=== PATIENT | female | born 1975 | race Caucasian/White ===

== ENCOUNTER 2017-01-22 22:26 | Outpatient (CLI) | payer MEDICAID | END 2017-01-22 22:27 | disposition critical access hospital (66) | LOC: EMS 22:26 | PROVIDERS: ATTEND Surgery | DX: M79.652 Pain in left thigh (principal) | CPT/HCPCS: A0425; A0429 ==

== ENCOUNTER 2017-01-22 22:40 | Emergency (ER) | payer MEDICAID ==
--- NOTE | 2017-01-22 23:41 | ED Physician Documentation ---
History of Present Illness - Stated complaint Stated Complaint: L THIGH CRAMPS - Chief complaint Chief Complaint: Ext Problem - History obtained from History obtained from: Patient - History of Present Illness Timing: How many days ago (3) Pain level now: 5 Improved by: no ameliorating factors Worsened by: weight-bearing - Additonal information Additional information: three days ago, patient stood up from bed and experienced "popping" sensation left thigh associated with sudden onset left lateral thigh pain which has progressed in intensity. It waxes and wanes/episodic, feels like cramping pain. also intermittent numbness distal to left knee. denies back pain, denies h/o similar symptoms Review of Systems Constitutional: denies: Fever GI: denies: Abdominal Pain, Nausea, Vomiting Skin: denies: Rash Musculoskeletal: reports: Extremity pain, Pain with weight bearing. denies: Neck pain, Back pain, Joint pain, Extremity swelling, Joint swelling Neurologic: reports: Numbness. 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 : None HEENT: None Psych: None Musculoskeletal: None Derm: None - Past Surgical History Past Surgical History: No - Present Medications Home Medications: Ambulatory Orders Medication Instructions Recorded Confirmed diazePAM [Valium] 5 mg PO TID PRN #15 tablet 01/23/17 oxyCODONE/ACET 5/325 [Percocet 5 1 - 2 each PO Q6H PRN #14 tablet 01/23/17 mg/325 mg] - Allergies Allergies/Adverse Reactions: Allergies Allergy/AdvReac Type Severity Reaction Status Date / Time aspirin Allergy Anaphylaxis Verified 01/22/17 22:49 - Social History Does the pt smoke?: No Smoking Status: Never smoker Does the pt drink ETOH?: No Does the pt have substance abuse?: No - Immunizations Immunizations are current?: Yes PD ED PE NORMAL - Vitals Vital signs reviewed: Yes - General General: Alert and oriented X 3, Well developed/nourished, Other (NAD initially , then had episode of left anterolateral thigh pain x several minutes but subsequently gradually improved ) - Abdomen Abdomen: Soft, Non tender - Back Back: No spinal TTP - Derm Derm: Normal color, Warm and dry, No rash - Extremities Extremities: No deformity, No tenderness to palpate, Normal ROM s pain, No edema , No calf tenderness / cord, Other (left foot is warm, normal color, with brisk capillary refill and 2+ DP pulse) - Neuro Neuro: No motor deficit, No sensory deficit Results - Vitals Vitals: Vital Signs - 24 hr 01/22/17 01/22/17 01/23/17 22:43 23:27 00:51 Temperature 36.6 C 37.1 C Heart Rate 89 85 86 Respiratory 20 16 18 Rate Blood Pressure 150/104 H 182/64 H 161/65 H O2 Saturation 100 99 99 01/23/17 01/23/17 01/23/17 01:17 02:05 03:16 Temperature 36.9 C 36.7 C Heart Rate 87 74 77 Respiratory 18 16 16 Rate Blood Pressure 186/76 H 154/44 H 160/48 H O2 Saturation 99 98 96 Oxygen O2 Source Room air PD MEDICAL DECISION MAKING - ED course Complexity details: considered differential, d/w patient ED course: adequate relief with flexeril and vicodin, but she had recurrence of severe pain when she tried to walk (with assistance), and thus given PO valium and IM dilaudid. On reevaluation, she reported significant relief and was comfortable with d/c home. Departure - Departure Disposition: Home, Self Care Clinical Impression: Muscle strain Condition: Good Instructions: ED Strain Muscle Ext Follow-Up: [facility] [Provider Group] [facility] [Provider Group] Prescriptions: oxyCODONE/ACET 5/325 [Percocet 5 mg/325 mg] 1 - 2 each PO Q6H PRN #14 tablet PRN Reason: Pain diazePAM [Valium] 5 mg PO TID PRN #15 tablet PRN Reason: Spasms Discharge Date/Time: 01/23/17 03:15
[2017-01-22] MEDS ORDERED: HYDROcod/ACETAM 5/325 MG TABLET PO STA (23:57)
[2017-01-22] MEDS ORDERED: CYCLOBENZAPRINE 10 MG TABLET PO STA (23:57)
[2017-01-23] MEDS ORDERED: HYDROcod/ACETAM 5/325 MG TABLET ONE (00:08)
[2017-01-23] MEDS ORDERED: CYCLOBENZAPRINE 10 MG TABLET PO ONE (00:08)
[2017-01-23] MEDS ORDERED: HYDROmorphone 1 MG/ML SYRINGE IM STA (01:25)
[2017-01-23] MEDS ORDERED: diazePAM 5 MG TABLET PO STA (01:25)
[2017-01-23] MEDS ORDERED: ONDANSETRON ODT 4 MG TABLET TL STA (01:26)
[2017-01-23] MEDS ORDERED: ONDANSETRON ODT 4 MG TABLET ONE (01:28)
[2017-01-23] MEDS ORDERED: diazePAM 5 MG TABLET PO ONE (01:28)
[2017-01-23] MEDS ORDERED: HYDROmorphone 1 MG/ML SYRINGE ONE (01:28)
[2017-01-23 03:21] VITALS: BP 160/48
== END 2017-01-23 03:15 | disposition home or self-care (01) ==
LOC: EDBD → ED 22:40
DX: S76.912A Strain of unspecified muscles, fascia and tendons at thigh level, left thigh, initial encounter (principal); X50.9XXA Other and unspecified overexertion or strenuous movements or postures, initial encounter
CPT/HCPCS: 96372; 99283; 99284; A9270; J1170; Q0162

== ENCOUNTER 2017-10-16 21:52 | Inpatient (IN) | payer MEDICAID ==
--- NOTE | 2017-10-16 22:25 | ED Physician Documentation ---
PD HPI SKIN - Stated complaint Stated Complaint: R LEG BOIL,FEVER - Chief complaint Chief Complaint: Wound - History obtained from History obtained from: Patient - History of Present Illness Timing - onset: How many days ago (5) Timing - duration: Days (5) Timing - details: Gradual onset Pain level max: 8 Pain level now: 8 Location: RLE Quality / character: Painful, Discolored, Raised, Swelling, Draining Improved by: Other (no ameliorating factors) Worsened by (comment): COMMENT (palpation, position) Associated symptoms: Fever (Tmax 102 (2 days ago)) Recently seen: Not recently seen - Additional information Additional information: patient states she has a "boil" right thigh that started 5 days ago; she says she occasionally has similar lesions since she was 15 years old, but they typically drain and then resolve without requiring medical attention. 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 : None HEENT: None Psych: None Musculoskeletal: None Derm: None - Past Surgical History Past Surgical History: No - Present Medications Home Medications: Ambulatory Orders Medication Instructions Recorded Confirmed Lisinopril 20 mg PO DAILY 10/16/17 10/16/17 - Allergies Allergies/Adverse Reactions: Allergies Allergy/AdvReac Type Severity Reaction Status Date / Time aspirin Allergy Anaphylaxis Verified 10/16/17 22:00 Latex, Natural Rubber Allergy Rash Verified 10/16/17 22:02 shellfish derived Allergy Anaphylaxis Verified 10/16/17 22:02 - Social History Does the pt smoke?: No Smoking Status: Never smoker Does the pt drink ETOH?: No Does the pt have substance abuse?: No - Immunizations Immunizations are current?: Yes - POLST Patient has POLST: No PD ED PE NORMAL - Vitals Vital signs reviewed: Yes - General General: Alert and oriented X 3, No acute distress (NAD at rest but obvious painful distress with movement involving RLE), Other (obese) - Cardiac Cardiac: RRR, No murmur - Respiratory Respiratory: No respiratory distress, Clear bilaterally PD ED PE EXPANDED - Extremities LORI LE visual: 1 - abscess (large, palpable abscess (fluctuance, hot to touch, exquisitely tender, erythematous, with scant drainage with pressure)), swelling, tenderness Results - Vitals Vitals: Vital Signs - 24 hr 10/16/17 10/17/17 21:56 01:11 Temperature 36.8 C 37.3 C Heart Rate 111 H 110 H Respiratory 18 24 Rate Blood Pressure 169/93 H 146/69 H O2 Saturation 98 96 Oxygen O2 Source Room air - Labs Labs: Microbiology 10/17/17 00:40 Wound Culture - Preliminary Abscess Laboratory Tests 10/16/17 10/16/17 10/16/17 22:50 22:50 22:50 WBC 13.7 H RBC 4.03 L Hgb 11.6 L Hct 34.8 L MCV 86.4 MCH 28.8 MCHC 33.3 RDW 14.0 Plt Count 262 MPV 8.6 Neut # 11.4 H Lymph # 0.9 L [place] # 1.1 H Eos # 0.2 Baso # 0.1 Absolute Nucleated RBC 0.01 Nucleated RBC % 0.1 Sodium 133 L Potassium 3.6 Chloride 95 L Carbon Dioxide 22 Anion Gap 16.0 H BUN 14 Creatinine 0.8 Estimated GFR (MDRD) 78 L Glucose 428 H Lactic Acid Calcium 8.8 Serum HCG, Qual NEGATIVE 10/16/17 23:05 WBC RBC Hgb Hct MCV MCH MCHC RDW Plt Count MPV Neut # Lymph # [place] # Eos # Baso # Absolute Nucleated RBC Nucleated RBC % Sodium Potassium Chloride Carbon Dioxide Anion Gap BUN Creatinine Estimated GFR (MDRD) Glucose Lactic Acid 1.4 Calcium Serum HCG, Qual PD MEDICAL DECISION MAKING - ED course Complexity details: reviewed results, re-evaluated patient, considered differential, d/w patient ED course: Exam is s/o extensive abscess not amenable to ED I+D. D/W Dr. Henriquez, recommends admission to hospitalist, NPO after midnight, and she will evaluate patient in AM for probably OR I+D. Pain was well controlled in ED with toradol and 2mg morphine (patient says she reacts strongly to all pain medications and thus wanted low doses if possible) Departure - Departure Disposition: [facility] DC/Xfer Clinical Impression: Abscess Condition: Good Discharge Date/Time: 10/17/17 02:16
[2017-10-16] MEDS ORDERED: MORPHINE 2 MG/ML CARPUJECT IVP STA (22:52)
[2017-10-16] MEDS ORDERED: KETOROLAC 60 MG/2 ML VIAL IVP STA (22:52)
[2017-10-16 23:07] LABS: BASOPHILS # (AUTO) 0.1 10^3/uL (0.0-0.1); BASOPHILS % (AUTO) 0.8 %; EOSINOPHILS # (AUTO) 0.2 10^3/uL (0.0-0.7); EOSINOPHILS % (AUTO) 1.7 %; HGB - HEMOGLOBIN 11.6 g/dL (12.0-16.0); LYMPHOCYTES # (AUTO) 0.9 10^3/uL (1.5-3.5); LYMPHOCYTES % (AUTO) 6.3 %; MEAN CORPUSCULAR HEMOGLOBIN 28.8 pg (27.0-31.0); MEAN CORPUSCULAR HGB CONC 33.3 g/dL (32.0-36.0); MEAN CORPUSCULAR VOLUME 86.4 fL (81.0-99.0); MEAN PLATELET VOLUME 8.6 fL (7.9-10.8); MONOCYTES # (AUTO) 1.1 10^3/uL (0.0-1.0); MONOCYTES % (AUTO) 7.8 %; NEUTROPHILS # (AUTO) 11.4 10^3/uL (1.5-6.6); NEUTROPHILS % (AUTO) 83.4 %; PLT - PLATELET COUNT 262 10^3/uL (130-450); RED BLOOD COUNT 4.03 10^6/uL (4.20-5.40); WHITE BLOOD COUNT 13.7 x10^3/uL (4.8-10.8)
[2017-10-16 23:20] LABS: CALCIUM 8.8 mg/dL (8.5-10.3); CREATININE 0.8 mg/dL (0.4-1.0)
[2017-10-16] MEDS ORDERED: VANCOMYCIN INJ 1 GM in SODIUM CHLORIDE 0.9% 250 ML IV STA (23:45)
[2017-10-16] MEDS ORDERED: SODIUM CHLORIDE 0.9% 1,000 ML IV STA (23:47)
[2017-10-16] MEDS ORDERED: PIPERACILLIN/TAZOBACTAM 3.375 GM in SODIUM CHLORIDE 0.9% MINIBAG 100 ML IV STA (23:47)
[2017-10-17] MEDS ORDERED: TEMAZEPAM 15 MG CAPSULE PO PRN (01:51)
[2017-10-17] MEDS ORDERED: HYDROmorphone 1 MG/ML SYRINGE IVP PRN (01:51)
[2017-10-17] MEDS ORDERED: ACETAMINOPHEN 325 MG TABLET PO PRN (01:51)
[2017-10-17] MEDS: SODIUM CHLORIDE 0.9% 1,000 ML IV SCH ×2 (02:51→13:51)
--- NOTE | 2017-10-17 04:19 | HISTORY & PHYSICAL EXAMINATION ---
DATE OF SERVICE: 10/17/2017 Physician: Candice Francis MD HISTORY OF PRESENT ILLNESS: This is a 42-year-old, white female with a history of morbid obesity with a BMI of 52, history of hypertension on lisinopril, and a history of prior lower extremity abscess or cysts that drain and resolve on their own according to the patient and . The patient presents with a 4-day history of a new cyst that opened and started to drain purulent drainage in the right medial thigh, very close to her groin. The drainage was somewhat purulent. The leg area involved then started to extend upward to involve a major portion of her proximal medial thigh with redness and pain. She also developed chills, nausea and vomiting, and spiking fevers. With these symptoms worsening today, she presented to the emergency room. She has been found to have a large abscess of the right thigh and is being admitted for management. PAST MEDICAL HISTORY: Hypertension, morbid obesity, prior leg "cysts". ALLERGIES 1. ASPIRIN. 2. LATEX. 3. RUBBER. 4. SHELLFISH. MEDICATIONS AT HOME: Lisinopril 20 mg daily. REVIEW OF SYSTEMS: A comprehensive review of systems was performed and the positives are above. FAMILY HISTORY: No inherited diseases. PHYSICAL EXAMINATION GENERAL: White female who is in no distress, supine in bed. There is a foul odor around her. VITAL SIGNS: Blood pressure 155/60, heart rate of 108 in sinus tachycardia. No fever here. Temperature is 37, room air saturation 96%. HEENT: Unremarkable. Oral mucosa is moist. NECK: Shows no JVD. No thyromegaly or carotid bruits. No lymphadenopathy. CHEST: Clear at the anterior bases. HEART: Heart sounds are normal. No audible murmurs. ABDOMEN: Obese. Normal bowel sounds. Nontender to light touch. No organomegaly. EXTREMITIES: Show no edema. The right medial and anterior thigh is covered in a bandage which was not reopened. NEUROLOGIC: Intact. LABORATORY DATA: Sodium 133, potassium 3.6, BUN 14, creatinine 0.8, glucose level 428. White blood count 13.7 with a left shift, hemoglobin 11.6 with a normal MCV and RDW. Platelet count normal at 262. No INR was done. No imaging was done. No EKG was done. IMPRESSION/DIAGNOSES 1. Recurrent leg abscess of the right, with extensive spread, pain and fever. 2. Hypertension. 3. Morbid obesity. 4. Hyperglycemia, suspicious of new diagnosis of diabetes mellitus. PLAN: Place the patient in a med/surgical inpatient bed. Begin IV fluids and begin IV antibiotics. The patient already had cultures performed in the emergency room; therefore, will continue with vancomycin and Zosyn IV. She also received Toradol and morphine for pain, and these will be continued. The general surgeon has been contacted by the emergency room doctor and the plan is to take her for debridement tomorrow. She will be placed n.p.o. after midnight. Obtain an A1c level to determine if there has been recent or longstanding diabetes. I suspect that this infection has tipped her over into being a full diabetic now , and she will need training and management regarding this new diagnosis. Her morbid obesity gives her some increased risk with anesthesia. Recommend obtaining a resting chest x-ray and resting EKG for risk factor evaluation. CODE STATUS: FULL CODE. DEEP VENOUS THROMBOSIS PROPHYLAXIS: Foot pumps. ATTESTATION: The patient is expected to be discharged or transferred to another facility within 96 hours: Yes. TD: 10/17/2017 04:17 MTDD
[2017-10-17 04:49] LABS: HCG,QUALITATIVE BLOOD NEGATIVE
[2017-10-17 06:39] LABS: BASOPHILS % (AUTO) 0.4 %; EOSINOPHILS # (AUTO) 0.2 10^3/uL (0.0-0.7); EOSINOPHILS % (AUTO) 1.9 %; HGB - HEMOGLOBIN 10.5 g/dL (12.0-16.0); LYMPHOCYTES # (AUTO) 0.9 10^3/uL (1.5-3.5); LYMPHOCYTES % (AUTO) 7.9 %; MEAN CORPUSCULAR HGB CONC 32.3 g/dL (32.0-36.0); MEAN CORPUSCULAR VOLUME 86.7 fL (81.0-99.0); MEAN PLATELET VOLUME 8.2 fL (7.9-10.8); MONOCYTES % (AUTO) 8.3 %; NEUTROPHILS # (AUTO) 9.7 10^3/uL (1.5-6.6); NEUTROPHILS % (AUTO) 81.5 %; PLT - PLATELET COUNT 273 10^3/uL (130-450); RED BLOOD COUNT 3.76 10^6/uL (4.20-5.40); RED CELL DISTRIBUTION WIDTH 14.1 % (12.0-15.0); WHITE BLOOD COUNT 11.9 x10^3/uL (4.8-10.8)
[2017-10-17 06:46] LABS: CALCIUM 8.2 mg/dL (8.5-10.3); CREATININE 0.8 mg/dL (0.4-1.0)
[2017-10-17 07:42] LABS: HB2 TOTAL 11.4 g/dL; HEMOGLOBIN A1C 1.29 g/dL; HEMOGLOBIN A1C % 12.5 % (4.6-6.2)
[2017-10-17] MEDS: CEFEPIME 2 GM in SODIUM CHLORIDE 0.9% MINIBAG 100 ML IV SCH ×2 (07:57→20:27)
[2017-10-17] MEDS ORDERED: VANCOMYCIN WEIGHT BASED (PHA COMPOUNDING) IV SCH (08:00)
[2017-10-17] MEDS: SODIUM CHLORIDE FLUSH 0.9% 10 ML SYRINGE IVP SCH ×3 (08:01→20:29)
[2017-10-17] MEDS: LISINOPRIL 20 MG TABLET PO SCH ×2 (09:03→09:05)
[2017-10-17] MEDS: FAMOTIDINE 20 MG TABLET PO SCH (09:03)
[2017-10-17] MEDS: POLYETHYLENE GLYCOL 3350 17 GM PACKET PO SCH (09:04)
[2017-10-17] MEDS: INSULIN REGULAR HUMAN 100 UNIT/1 ML 10 ML MDV SUBQ SCH ×2 (09:31→12:12)
--- NOTE | 2017-10-17 09:33 | CONSULTATION NOTE ---
Referring Provider Name of Referring Provider:: Dr. Zaldivar Consult Date: 10/17/17 Chief Complaint - Chief Complaint Chief Complaint: right thigh abscess History of Present Illness - History of Present Illness HPI Comment/Other: This is a 42 year old morbidly obese female with a history of groin abscesses who presented to the ER for a two week history of pain and swelling in the right groin which originated posteriorly toward her buttock. The pain became worse and was associated with fever and chills. On evaluation in the ER she was noted to be febrile with an elevated WBC. Upon my evaluation of the patient she is currently afebrile after receiving antibiotics with a slightly improved WBC. Her blood glucose is over 300. She is slightly tachycardic but otherwise resting in bed comfortably. She states that she has never been diagnosed with diabetes. 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 : reports: None HEENT: reports: None Psych: reports: None Musculoskeletal: reports: Osteoarthritis Derm: reports: None MRSA Hx?: No Other Past Medical History: whooping cough 2001 - POLST Patient has POLST: No Meds/Allgy - Home Medications Home Medications: Ambulatory Orders Medication Instructions Recorded Confirmed Lisinopril 20 mg PO DAILY 10/16/17 10/16/17 - Allergies Allergies/Adverse Reactions: Allergies Allergy/AdvReac Type Severity Reaction Status Date / Time aspirin Allergy Anaphylaxis Verified 10/16/17 22:00 Latex, Natural Rubber Allergy Rash Verified 10/16/17 22:02 shellfish derived Allergy Anaphylaxis Verified 10/16/17 22:02 Review of Systems - Constitutional Constitutional: reports: Fever, Chills Exam - Vital Signs Reviewed Vital Signs: Yes Vital Signs: Vital Signs x48h Temp Pulse Resp BP BP Pulse Ox 10/17/17 07:34 37.4 C 95 18 160/70 H 98 10/17/17 02:30 37.1 C 108 H 18 155/60 H 96 - Physical Exam General Appearance: positive: No acute distress Respiratory: positive: No respiratory distress, Breath sounds nml Cardiovascular: positive: Tachycardia Extremities: positive: Other (6 cm x 6 cm area of induration and swelling in upper right thigh with surrounding erythema. Area is slightly tender to palpation. No crepitence.) Neurologic/Psychiatric: positive: Oriented x3 Conclusion/Plan - Diagnosis Diagnosis: right thich cellulitis with probable abscess - Plan Plan: 1. Thigh cellulitis/abscess: Continue broad spectrum antibiotics. Cultures will be obtained in OR. Will proceed with incision and drainage of indurated area. 2. Uncontrolled diabetes: Patient will require Q2 monitoring of blood glucose until she is within the normal range. Consider insulin drip if sub q insulin is ineffective. In the setting of active infection poorly controlled glucose will contribute to prolongation of wound infection and poor wound healing. 3. Morbid obesity: Patient should be referred to a retail service representative for discussion of lifestyle modification given her morbid obesity associated with HTN, diabetes and recurring soft tissue infections. 4. HTN: continue home dosage of lisinopril. - Lab Results Fish Bones: 10/17/17 06:21 10/17/17 06:21
[2017-10-17] MEDS ORDERED: SODIUM CHLORIDE 0.9% 0 ML IV ONE (09:49)
[2017-10-17] MEDS ORDERED: LACTATED RINGERS 500 ML IV ONE (10:03)
[2017-10-17] MEDS: VANCOMYCIN INJ 2 GM in SODIUM CHLORIDE 0.9% 500 ML IV SCH ×2 (10:04→22:02)
[2017-10-17] MEDS ORDERED: KETAMINE 500 MG/10 ML VIAL IVP ONE (10:40)
[2017-10-17] MEDS ORDERED: MIDAZOLAM 2 MG/2 ML VIAL IVP ONE (10:40)
[2017-10-17] MEDS ORDERED: LIDOCAINE-MPF 2% 5 ML VIAL IM ONE (10:40)
[2017-10-17] MEDS ORDERED: fentaNYL 100 MCG/2 ML VIAL IVP ONE (10:40)
[2017-10-17] MEDS ORDERED: PROPOFOL 200 MG/20 ML VIAL IVP ONE (10:40)
[2017-10-17] MEDS ORDERED: ONDANSETRON 4 MG/2 ML VIAL IVP ONE (10:40)
[2017-10-17] MEDS ORDERED: BUPIVACAINE 0.25% PF 30 ML VIAL SUBQ ONE (10:44)
--- NOTE | 2017-10-17 10:44 | XRAY Report ---
EXAM: CHEST RADIOGRAPHY EXAM DATE: 10/17/2017 06:50 AM. CLINICAL HISTORY: Pre-op clearance. COMPARISON: None. TECHNIQUE: 1 view. FINDINGS: Lungs/Pleura: No focal opacities evident. No pleural effusion. No pneumothorax. Mediastinum: Within exam limitations, the cardiomediastinal contour is normal. Other: Mild degenerative process in the bilateral AC joint visualized. IMPRESSION: Negative single view chest. [facility] Referring Provider Line: [phone] SITE ID: [id number]
[2017-10-17] MEDS ORDERED: SODIUM CHLORIDE 0.9% 1,000 ML IV ONE (11:08)
[2017-10-17] MEDS ORDERED: LACTATED RINGERS 1,000 ML IV ONE ×2 (11:08)
[2017-10-17] MEDS: INSULIN REGULAR HUMAN 100 UNIT/1 ML 10 ML MDV ONE ×2 (11:20→11:42)
--- NOTE | 2017-10-17 11:20 | OPERATIVE REPORT ---
Operative Report - General Admit Date: 10/17/17 Procedure Date: 10/17/17 Planned Procedure: incision and drainage right groin abscess Pre-Op Diagnosis: abscess right groin Procedure Performed: incision and drainage right groin abscess Post Op Diagnosis: same - Procedure Note Primary Surgeon: Florence Anesthesia Provider: Nelson Kothari Anesthesia Technique: MAC IV Fluids (mL): 300 - Other Other Information/Narrative: After obtaining informed consent from the patient she was brought into the operating room and positioned on the operating table in the modified lithotomy position. She was administered sedation and prepped and draped in the usual sterile fashion and a timeout was taken according to protocol.A pinpoint opening in the right genital region adjacent to the right labia was noted and draining foul-smelling pus. This opening was extended cephalad approximately 4 cm and the abscess cavity encountered. Cultures were obtained. The surgeon's finger was inserted and the abscess cavity was noted to be quite extensive. The incision was extended an additional 3 cm cephalad. The abscess cavity was inspected and necrotic tissue was noted. This was removed using sharp dissection. The necrotic tissue extended beyond the length of the incision incision had to be extended even more cephalad to approximately 12 cm incision. All necrotic tissue was debrided with a combination of curette and sharp dissection. Once I was satisfied with the removal of the necrotic tissue pulse irrigation utilizing 3 L of saline was performed. The abscess cavity was inspected and an additional area of necrotic tissue was debrided. Hemostasis was then achieved with pressure. A Betadine soaked Kerlix was inserted into the abscess cavity; the abscess cavity extended beyond the incision somewhat in a cephalad and medial direction towards her thigh. Once the cavity was completely packed fluffs and Derek wrap were placed. Due to the proximity of the wound and the morbid obesity of the patient a Frazier catheter was placed for ease of wound care. The patient was subsequently taken to the recovery room in stable condition. Estimated blood loss: 30 cc Complications: None Specimens: Wound cultures Plan: The patient will require return to the operating room in 48 hours for reexamination of the wound and repacking. She will require a wound care consult and should remain on broad-spectrum antibiotics until cultures have been resulted. She will require close monitoring of her blood glucose and possibly an insulin drip.
[2017-10-17] MEDS ORDERED: INSULIN REGULAR HUMAN 100 UNIT/1 ML 10 ML MDV SUBQ ONE (11:32)
[2017-10-17] MEDS: metroNIDAZOLE 500 MG/100 ML 500 MG/100 ML BAG IV SCH ×2 (13:50→18:09)
[2017-10-17] MEDS ORDERED: INSULIN ASPART 300 UNIT/3 ML PEN SUBQ SCH ×4 (14:15→21:00)
[2017-10-17] MEDS: KETOROLAC 30 MG/ML VIAL IVP PRN (16:23)
[2017-10-17] MEDS: ACETAMINOPHEN 1,000 MG/100 ML 100 ML IV PRN (16:23)
[2017-10-17] MEDS ORDERED: INSULIN GLARGINE 300 UNIT/3 ML PEN SUBQ SCH (18:00)
--- NOTE | 2017-10-17 19:25 | PROVIDER PROGRESS NOTE ---
Subjective - Prog Note Date Prog Note Date: 10/17/17 Prog Note Time: 08:00 - Subjective Pt reports feeling: No change Subjective: Patient has no complaints and is now post-op from right inner thigh I & D. She denies SOB, chest pain, N/V or a new cough. Current Medications - Current Medications Current Medications: Active Medications Acetaminophen (Tylenol) 650 mg PO Q4HR PRN PRN Reason: Pain 1 to 4 Famotidine (Pepcid) 20 mg PO DAILY [facility] Last Admin: 10/18/17 08:47 Dose: 20 mg Hydromorphone HCl (Dilaudid Inj Syringe) 0.5 mg IVP Q2H PRN PRN Reason: Pain 8 to 10 Sodium Chloride (Normal Saline 0.9%) 1,000 mls @ 80 mls/hr IV .[id number] [facility] Last Admin: 10/18/17 06:03 Dose: 80 mls/hr Acetaminophen (Ofirmev) 100 mls @ 400 mls/hr IV Q6HR PRN PRN Reason: PAIN Last Infusion: 10/18/17 10:53 Dose: Infused Cefepime HCl 2 gm/ Sodium (Chloride) 100 mls @ 200 mls/hr IV BID [facility] Last Infusion: 10/18/17 10:53 Dose: Infused Vancomycin HCl 2 gm/ Sodium (Chloride) 500 mls @ 250 mls/hr IV Q12H [facility] Last Admin: 10/18/17 11:13 Dose: 250 mls/hr Metronidazole (Flagyl 500 Mg/100 Ml) 500 mg in 100 mls @ 100 mls/hr IV Q6HR [facility] Last Infusion: 10/18/17 14:29 Dose: Infused Insulin Aspart (Novolog) 3 - 11 unit SUBQ 0800,1200,1700,2100 [facility] PRN Reason: Protocol Last Admin: 10/18/17 16:54 Dose: 3 unit Insulin Aspart (Novolog) 7 unit SUBQ TIDWM [facility] PRN Reason: Protocol Insulin Glargine (Lantus Solostar) 20 unit SUBQ 0600,1800 [facility] Last Admin: 10/18/17 06:14 Dose: 20 unit Ketorolac Tromethamine (Toradol Inj) 30 mg IVP Q6HR PRN PRN Reason: PAIN Stop: 10/22/17 04:17 Last Admin: 10/17/17 16:23 Dose: 30 mg Lidocaine HCl (Xylocaine Uro-Jet 2%) 2.5 ml UR ONCE [facility] Stop: 10/18/17 23:59 Lisinopril (Zestril) 20 mg PO DAILY [facility] Last Admin: 10/18/17 08:48 Dose: 20 mg Polyethylene Glycol (Miralax) 17 gm PO DAILY [facility] Last Admin: 10/18/17 08:47 Dose: 17 gm Prochlorperazine Edisylate (Compazine Inj) 10 mg IVP Q6HR PRN PRN Reason: Nausea / Vomiting Sodium Chloride (Normal Saline Flush 0.9%) 10 ml IVP PRN PRN PRN Reason: NEEDED PER PROVIDER ORDERS Last Admin: 10/18/17 00:17 Dose: 10 ml Sodium Chloride (Normal Saline Flush 0.9%) 10 ml IVP Q8HR [facility] Last Admin: 10/18/17 12:35 Dose: Not Given Temazepam (Restoril) 15 mg PO QPM PRN PRN Reason: Insomnia Lisinopril 20 mg PO DAILY 10/16/17 Objective - Vital Signs/Intake & Output Reviewed Vital Signs: Yes Vital Signs: Vital Signs x48h Temp Pulse Resp BP BP Pulse Ox 10/17/17 15:59 38 C H 98 16 155/76 H 97 10/17/17 14:59 38.2 C H 96 16 144/55 H 96 10/17/17 13:59 37.9 C H 94 18 140/73 H 97 10/17/17 12:59 37.7 C H 93 20 137/66 H 97 10/17/17 12:29 36.6 C 97 20 155/70 H 97 10/17/17 12:10 97 10/17/17 11:55 97 10/17/17 11:40 98 10/17/17 11:35 100 10/17/17 11:30 100 10/17/17 11:25 100 Intake & Output: Intake & Output 10/14/17 10/15/17 10/16/17 10/17/17 23:59 23:59 23:59 23:59 Intake Total 1850.000 Output Total 250 Balance 1600.000 - Objective General Appearance: positive: No acute distress, Lethargic Eyes Bilateral: positive: Normal inspection ENT: positive: ENT inspection nml, Pharynx nml, Dry mucous membranes Neck: positive: Thyroid nml, No JVD, Stiff neck, Other (large circumferance) Respiratory: positive: Chest non-tender, No respiratory distress, Other ( diminished) Cardiovascular: positive: Regular rate & rhythm, No gallop, Other (distant) Peripheral Pulses: 2+ Radial (R), 2+ Radial (L) Abdomen: positive: Non-tender, No organomegaly, Nml bowel sounds, No distention , Other (obese, soft) Back: positive: Nml inspection Skin: positive: No rash, Warm, Dry Neurologic/Psychiatric: positive: Oriented x3, CN's nml (2-12), Motor nml, Sensation nml, Depressed mood/affect Reflexes: Bicep (R): 2+, Bicep (L): 2+ - Lab Results Fish Bones: 10/18/17 05:07 10/18/17 05:07 Other Labs: Lab Results x24hrs 10/17/17 10/17/17 10/17/17 Range/Units 17:52 15:58 12:45 WBC (4.8-10.8) x10^3/uL RBC (4.20-5.40) 10^6/uL Hgb (12.0-16.0) g/dL Hct (37.0-47.0) % MCV (81.0-99.0) fL MCH (27.0-31.0) pg MCHC (32.0-36.0) g/dL RDW (12.0-15.0) % Plt Count (130-450) 10^3/uL MPV (7.9-10.8) fL Neut # (1.5-6.6) 10^3/uL Lymph # (1.5-3.5) 10^3/uL Summers # (0.0-1.0) 10^3/uL Eos # (0.0-0.7) 10^3/uL Baso # (0.0-0.1) 10^3/uL Absolute Nucleated RBC x10^3/uL Nucleated RBC % /100WBC Sodium (135-145) mmol/L Potassium (3.5-5.0) mmol/L Chloride (101-111) mmol/L Carbon Dioxide (21-32) mmol/L Anion Gap (6-13) BUN (6-20) mg/dL Creatinine (0.4-1.0) mg/dL Estimated GFR (MDRD) (>89) Glucose (70-100) mg/dL POC Whole Bld Glucose 210 H 172 H 260 H (70 - 100) mg/dL Glycated Hemoglobin (4.6-6.2) % Estim Average Glucose (70-100) Calcium (8.5-10.3) mg/dL 10/17/17 10/17/17 10/17/17 Range/Units 11:37 11:15 09:17 WBC (4.8-10.8) x10^3/uL RBC (4.20-5.40) 10^6/uL Hgb (12.0-16.0) g/dL Hct (37.0-47.0) % MCV (81.0-99.0) fL MCH (27.0-31.0) pg MCHC (32.0-36.0) g/dL RDW (12.0-15.0) % Plt Count (130-450) 10^3/uL MPV (7.9-10.8) fL Neut # (1.5-6.6) 10^3/uL Lymph # (1.5-3.5) 10^3/uL Summers # (0.0-1.0) 10^3/uL Eos # (0.0-0.7) 10^3/uL Baso # (0.0-0.1) 10^3/uL Absolute Nucleated RBC x10^3/uL Nucleated RBC % /100WBC Sodium (135-145) mmol/L Potassium (3.5-5.0) mmol/L Chloride (101-111) mmol/L Carbon Dioxide (21-32) mmol/L Anion Gap (6-13) BUN (6-20) mg/dL Creatinine (0.4-1.0) mg/dL Estimated GFR (MDRD) (>89) Glucose (70-100) mg/dL POC Whole Bld Glucose 353 H 345 H 380 H (70 - 100) mg/dL Glycated Hemoglobin (4.6-6.2) % Estim Average Glucose (70-100) Calcium (8.5-10.3) mg/dL 10/17/17 10/17/17 10/17/17 Range/Units 06:21 06:21 06:21 WBC 11.9 H (4.8-10.8) x10^3/uL RBC 3.76 L (4.20-5.40) 10^6/uL Hgb 10.5 L (12.0-16.0) g/dL Hct 32.6 L (37.0-47.0) % MCV 86.7 (81.0-99.0) fL MCH 28.0 (27.0-31.0) pg MCHC 32.3 (32.0-36.0) g/dL RDW 14.1 (12.0-15.0) % Plt Count 273 (130-450) 10^3/uL MPV 8.2 (7.9-10.8) fL Neut # 9.7 H (1.5-6.6) 10^3/uL Lymph # 0.9 L (1.5-3.5) 10^3/uL Summers # 1.0 (0.0-1.0) 10^3/uL Eos # 0.2 (0.0-0.7) 10^3/uL Baso # 0.0 (0.0-0.1) 10^3/uL Absolute Nucleated RBC 0.00 x10^3/uL Nucleated RBC % 0.0 /100WBC Sodium 133 L (135-145) mmol/L Potassium 3.6 (3.5-5.0) mmol/L Chloride 98 L (101-111) mmol/L Carbon Dioxide 23 (21-32) mmol/L Anion Gap 12.0 (6-13) BUN 16 (6-20) mg/dL Creatinine 0.8 (0.4-1.0) mg/dL Estimated GFR (MDRD) 78 L (>89) Glucose 392 H (70-100) mg/dL POC Whole Bld Glucose (70 - 100) mg/dL Glycated Hemoglobin 12.5 H (4.6-6.2) % Estim Average Glucose 312 H (70-100) Calcium 8.2 L (8.5-10.3) mg/dL - Diagnostic Imaging Diagnostic Imaging Results: positive: Final report reviewed Assessment/Plan - Problem List (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 Patient has an elevated BMI of 52.1, and is morbidly obese. Patient denies awareness of diabetes, although has had elaborate wounds in the past. Blood glucose has been elevated since surgery of >200. Plan: Start at high dose Lantus, add sliding scale and consider an insulin gtt if blood sugars are unmanaged. (2) Abscess Impression: Patient notes that she has been getting boils since age 15 years and they are generally self limiting. She arrived in our ED with a right inner thigh boil that appeared infected, so general surgery was consulted. Plan: Wound care per nursing and surgery following. (3) Cutaneous abscess of limb, unspecified Impression: Patient notes that she has been getting boils since age 15 years and they are generally self limiting. She arrived in our ED with a right inner thigh boil that was extremely painful, had fevers, and appeared infected, so general surgery was consulted. Patient was taken to OR, and is now post op. Plan: Wound care per nursing and surgery following. (4) Essential hypertension Impression: Patient has a known history of this and was on lisinopril at home. Blood pressure today was 146/52. Plan: Continue home dose and monitor vital signs. (5) Morbid (severe) obesity due to excess calories Impression: Patient has a grossly elevated BMI of 52.1, and has had weight issues for "as long as she can remember". Complications of this are likely hypertension and now diabetes mellitus type 2. Plan: Consider nutrition consult for weight management for halfway goals. (6) Hyperglycemia Impression: Patient's blood sugars have been over 200 since surgery. To prevent moving to the ICU for an insulin gtt, patient is now on every 2 hour checks. General surgery is aware and updated. Plan: Monitor frequently to maintain a blood glucose less than 200 to lessen the likelihood of a post-op infection.
[2017-10-17] MEDS: INSULIN ASPART 300 UNIT/3 ML PEN SUBQ SCH ×4 (20:27→22:08)
[2017-10-18] MEDS: INSULIN ASPART 300 UNIT/3 ML PEN SUBQ SCH ×15 (00:02→21:13)
[2017-10-18] MEDS: SODIUM CHLORIDE FLUSH 0.9% 10 ML SYRINGE IVP PRN (00:17)
[2017-10-18] MEDS: metroNIDAZOLE 500 MG/100 ML 500 MG/100 ML BAG IV SCH ×4 (00:18→18:56)
[2017-10-18] MEDS: SODIUM CHLORIDE 0.9% 1,000 ML IV SCH ×2 (04:21→06:03)
[2017-10-18 05:49] LABS: BASOPHILS % (AUTO) 0.3 %; EOSINOPHILS # (AUTO) 0.2 10^3/uL (0.0-0.7); EOSINOPHILS % (AUTO) 2.3 %; HGB - HEMOGLOBIN 9.8 g/dL (12.0-16.0); LYMPHOCYTES # (AUTO) 1.2 10^3/uL (1.5-3.5); LYMPHOCYTES % (AUTO) 11.3 %; MEAN CORPUSCULAR HEMOGLOBIN 28.5 pg (27.0-31.0); MEAN CORPUSCULAR HGB CONC 33.1 g/dL (32.0-36.0); MEAN PLATELET VOLUME 7.8 fL (7.9-10.8); NEUTROPHILS # (AUTO) 8.4 10^3/uL (1.5-6.6); NEUTROPHILS % (AUTO) 77.1 %; PLT - PLATELET COUNT 281 10^3/uL (130-450); RED BLOOD COUNT 3.46 10^6/uL (4.20-5.40); RED CELL DISTRIBUTION WIDTH 13.6 % (12.0-15.0); WHITE BLOOD COUNT 10.9 x10^3/uL (4.8-10.8)
[2017-10-18 05:56] LABS: ALBUMIN 2.3 g/dL (3.2-5.5); ALBUMIN/GLOBULIN RATIO 0.6 (1.0-2.2); CALCIUM 7.8 mg/dL (8.5-10.3); CREATININE 0.7 mg/dL (0.4-1.0); TOTAL PROTEIN 6.4 g/dL (6.7-8.2)
[2017-10-18] MEDS: INSULIN GLARGINE 300 UNIT/3 ML PEN SUBQ SCH ×2 (06:14→19:07)
[2017-10-18] MEDS: SODIUM CHLORIDE FLUSH 0.9% 10 ML SYRINGE IVP SCH ×3 (06:29→21:13)
[2017-10-18] MEDS: ACETAMINOPHEN 1,000 MG/100 ML 100 ML IV PRN ×2 (06:59→20:00)
[2017-10-18] MEDS: CEFEPIME 2 GM in SODIUM CHLORIDE 0.9% MINIBAG 100 ML IV SCH ×2 (08:46→21:10)
[2017-10-18] MEDS: POLYETHYLENE GLYCOL 3350 17 GM PACKET PO SCH (08:47)
[2017-10-18] MEDS: FAMOTIDINE 20 MG TABLET PO SCH (08:47)
[2017-10-18] MEDS: LISINOPRIL 20 MG TABLET PO SCH (08:48)
--- NOTE | 2017-10-18 09:28 | PROVIDER PROGRESS NOTE ---
Subjective - General Admit Date: 10/17/17 Procedure Date: 10/17/17 Post Op Days: 1 Procedure Performed: Incision and drainage right groin abscess - Review of Systems Wound/Incisions: positive: Dressing dry and intact General: positive: No symptoms - Other Other Information/Narrative: Glucose control has improved. The patient's white blood cell count has decreased. She had a low-grade fever up until approximately 10 PM last night and has remained afebrile since. She has very minimal pain associated with her incisional site. Gram stain reveals mostly gram positive cocci with a few gram- positive rods. Objective - Patient Data Reviewed Vital Signs: Yes Vital Signs: Vital Signs x48h Temp Pulse Resp BP Pulse Ox 10/18/17 07:26 37.7 C H 93 18 161/64 H 96 Weight: Weight 10/16/17 10/17/17 10/18/17 23:59 23:59 23:59 Weight (kg) 151 kg Intake & Output: Intake and Output Totals x24h 10/16/17 10/17/17 10/18/17 23:59 23:59 23:59 Intake Total 3702.000 1068 Output Total 375 200 Balance 3327.000 868 - Lab Results Lab Results: 10/18/17 05:07 10/18/17 05:07 Other Lab Results: Lab Results x24hrs 10/18/17 10/18/17 10/18/17 Range/Units 07:24 05:44 05:07 WBC (4.8-10.8) x10^3/uL RBC (4.20-5.40) 10^6/uL Hgb (12.0-16.0) g/dL Hct (37.0-47.0) % MCV (81.0-99.0) fL MCH (27.0-31.0) pg MCHC (32.0-36.0) g/dL RDW (12.0-15.0) % Plt Count (130-450) 10^3/uL MPV (7.9-10.8) fL Neut # (1.5-6.6) 10^3/uL Lymph # (1.5-3.5) 10^3/uL [place] # (0.0-1.0) 10^3/uL Eos # (0.0-0.7) 10^3/uL Baso # (0.0-0.1) 10^3/uL Absolute Nucleated RBC x10^3/uL Nucleated RBC % /100WBC Sodium 137 (135-145) mmol/L Potassium 3.4 L (3.5-5.0) mmol/L Chloride 104 (101-111) mmol/L Carbon Dioxide 22 (21-32) mmol/L Anion Gap 11.0 (6-13) BUN 15 (6-20) mg/dL Creatinine 0.7 (0.4-1.0) mg/dL Estimated GFR (MDRD) 91 (>89) Glucose 133 H (70-100) mg/dL POC Whole Bld Glucose 137 H 141 H (70 - 100) mg/dL Calcium 7.8 L (8.5-10.3) mg/dL Total Bilirubin 1.0 (0.2-1.0) mg/dL AST 32 (10-42) IU/L ALT 25 (10-60) IU/L Alkaline Phosphatase 81 (42-121) IU/L Total Protein 6.4 L (6.7-8.2) g/dL Albumin 2.3 L (3.2-5.5) g/dL Globulin 4.1 (2.1-4.2) g/dL Albumin/Globulin Ratio 0.6 L (1.0-2.2) 10/18/17 10/18/17 10/18/17 Range/Units 05:07 04:15 01:54 WBC 10.9 H (4.8-10.8) x10^3/uL RBC 3.46 L (4.20-5.40) 10^6/uL Hgb 9.8 L (12.0-16.0) g/dL Hct 29.7 L (37.0-47.0) % MCV 86.0 (81.0-99.0) fL MCH 28.5 (27.0-31.0) pg MCHC 33.1 (32.0-36.0) g/dL RDW 13.6 (12.0-15.0) % Plt Count 281 (130-450) 10^3/uL MPV 7.8 L (7.9-10.8) fL Neut # 8.4 H (1.5-6.6) 10^3/uL Lymph # 1.2 L (1.5-3.5) 10^3/uL [place] # 1.0 (0.0-1.0) 10^3/uL Eos # 0.2 (0.0-0.7) 10^3/uL Baso # 0.0 (0.0-0.1) 10^3/uL Absolute Nucleated RBC 0.01 x10^3/uL Nucleated RBC % 0.0 /100WBC Sodium (135-145) mmol/L Potassium (3.5-5.0) mmol/L Chloride (101-111) mmol/L Carbon Dioxide (21-32) mmol/L Anion Gap (6-13) BUN (6-20) mg/dL Creatinine (0.4-1.0) mg/dL Estimated GFR (MDRD) (>89) Glucose (70-100) mg/dL POC Whole Bld Glucose 114 H 129 H (70 - 100) mg/dL Calcium (8.5-10.3) mg/dL Total Bilirubin (0.2-1.0) mg/dL AST (10-42) IU/L ALT (10-60) IU/L Alkaline Phosphatase (42-121) IU/L Total Protein (6.7-8.2) g/dL Albumin (3.2-5.5) g/dL Globulin (2.1-4.2) g/dL Albumin/Globulin Ratio (1.0-2.2) 10/17/17 10/17/17 10/17/17 Range/Units 23:45 22:05 22:03 WBC (4.8-10.8) x10^3/uL RBC (4.20-5.40) 10^6/uL Hgb (12.0-16.0) g/dL Hct (37.0-47.0) % MCV (81.0-99.0) fL MCH (27.0-31.0) pg MCHC (32.0-36.0) g/dL RDW (12.0-15.0) % Plt Count (130-450) 10^3/uL MPV (7.9-10.8) fL Neut # (1.5-6.6) 10^3/uL Lymph # (1.5-3.5) 10^3/uL [place] # (0.0-1.0) 10^3/uL Eos # (0.0-0.7) 10^3/uL Baso # (0.0-0.1) 10^3/uL Absolute Nucleated RBC x10^3/uL Nucleated RBC % /100WBC Sodium (135-145) mmol/L Potassium (3.5-5.0) mmol/L Chloride (101-111) mmol/L Carbon Dioxide (21-32) mmol/L Anion Gap (6-13) BUN (6-20) mg/dL Creatinine (0.4-1.0) mg/dL Estimated GFR (MDRD) (>89) Glucose (70-100) mg/dL POC Whole Bld Glucose 189 H 267 H < 10 L* (70 - 100) mg/dL Calcium (8.5-10.3) mg/dL Total Bilirubin (0.2-1.0) mg/dL AST (10-42) IU/L ALT (10-60) IU/L Alkaline Phosphatase (42-121) IU/L Total Protein (6.7-8.2) g/dL Albumin (3.2-5.5) g/dL Globulin (2.1-4.2) g/dL Albumin/Globulin Ratio (1.0-2.2) 10/17/17 10/17/17 10/17/17 Range/Units 20:11 17:52 15:58 WBC (4.8-10.8) x10^3/uL RBC (4.20-5.40) 10^6/uL Hgb (12.0-16.0) g/dL Hct (37.0-47.0) % MCV (81.0-99.0) fL MCH (27.0-31.0) pg MCHC (32.0-36.0) g/dL RDW (12.0-15.0) % Plt Count (130-450) 10^3/uL MPV (7.9-10.8) fL Neut # (1.5-6.6) 10^3/uL Lymph # (1.5-3.5) 10^3/uL [place] # (0.0-1.0) 10^3/uL Eos # (0.0-0.7) 10^3/uL Baso # (0.0-0.1) 10^3/uL Absolute Nucleated RBC x10^3/uL Nucleated RBC % /100WBC Sodium (135-145) mmol/L Potassium (3.5-5.0) mmol/L Chloride (101-111) mmol/L Carbon Dioxide (21-32) mmol/L Anion Gap (6-13) BUN (6-20) mg/dL Creatinine (0.4-1.0) mg/dL Estimated GFR (MDRD) (>89) Glucose (70-100) mg/dL POC Whole Bld Glucose 242 H 210 H 172 H (70 - 100) mg/dL Calcium (8.5-10.3) mg/dL Total Bilirubin (0.2-1.0) mg/dL AST (10-42) IU/L ALT (10-60) IU/L Alkaline Phosphatase (42-121) IU/L Total Protein (6.7-8.2) g/dL Albumin (3.2-5.5) g/dL Globulin (2.1-4.2) g/dL Albumin/Globulin Ratio (1.0-2.2) 10/17/17 10/17/17 10/17/17 Range/Units 12:45 11:37 11:15 WBC (4.8-10.8) x10^3/uL RBC (4.20-5.40) 10^6/uL Hgb (12.0-16.0) g/dL Hct (37.0-47.0) % MCV (81.0-99.0) fL MCH (27.0-31.0) pg MCHC (32.0-36.0) g/dL RDW (12.0-15.0) % Plt Count (130-450) 10^3/uL MPV (7.9-10.8) fL Neut # (1.5-6.6) 10^3/uL Lymph # (1.5-3.5) 10^3/uL [place] # (0.0-1.0) 10^3/uL Eos # (0.0-0.7) 10^3/uL Baso # (0.0-0.1) 10^3/uL Absolute Nucleated RBC x10^3/uL Nucleated RBC % /100WBC Sodium (135-145) mmol/L Potassium (3.5-5.0) mmol/L Chloride (101-111) mmol/L Carbon Dioxide (21-32) mmol/L Anion Gap (6-13) BUN (6-20) mg/dL Creatinine (0.4-1.0) mg/dL Estimated GFR (MDRD) (>89) Glucose (70-100) mg/dL POC Whole Bld Glucose 260 H 353 H 345 H (70 - 100) mg/dL Calcium (8.5-10.3) mg/dL Total Bilirubin (0.2-1.0) mg/dL AST (10-42) IU/L ALT (10-60) IU/L Alkaline Phosphatase (42-121) IU/L Total Protein (6.7-8.2) g/dL Albumin (3.2-5.5) g/dL Globulin (2.1-4.2) g/dL Albumin/Globulin Ratio (1.0-2.2) - Current Medications Current Medications: Current Medications Generic Name Dose Route Start Last Admin Trade Name Freq PRN Reason Stop Dose Admin Famotidine 20 mg 10/17/17 09:00 10/18/17 08:47 Pepcid PO 20 mg DAILY FELISHA Administration Sodium Chloride 1,000 mls @ 80 mls/hr 10/17/17 02:00 10/18/17 06:03 Normal Saline 0.9% IV 80 mls/hr .[id number] FELISHA Administration Acetaminophen 100 mls @ 400 mls/hr 10/17/17 01:55 10/18/17 06:59 Ofirmev IV 400 mls/hr Q6HR PRN Administration PAIN Cefepime HCl 2 gm/ Sodium 100 mls @ 200 mls/hr 10/17/17 08:00 10/18/17 08:46 Chloride IV 200 mls/hr BID FELISHA Administration Vancomycin HCl 2 gm/ Sodium 500 mls @ 250 mls/hr 10/17/17 10:00 10/17/17 22: 02 Chloride IV 250 mls/hr Q12H FELISHA Administration Metronidazole 500 mg in 100 mls @ 100 mls/hr 10/17/17 12:00 10/18/17 07:04 Flagyl 500 Mg/100 Ml IV Infused Q6HR FELISHA Infusion Insulin Aspart 3 - 11 unit 10/17/17 20:00 10/18/17 07:41 Novolog SUBQ Not Given Q2HR [facility] Protocol Insulin Aspart 2 unit 10/17/17 20:46 10/18/17 08:45 Novolog SUBQ 2 unit Q2H FELISHA Administration Insulin Glargine 20 unit 10/17/17 19:20 10/18/17 06:14 Lantus Solostar SUBQ 20 unit 0600,1800 FELISHA Administration Ketorolac Tromethamine 30 mg 10/17/17 04:18 10/17/17 16:23 Toradol Inj IVP 10/22/17 04:17 30 mg Q6HR PRN Administration PAIN Lisinopril 20 mg 10/17/17 08:00 10/18/17 08:48 Zestril PO 20 mg DAILY FELISHA Administration Polyethylene Glycol 17 gm 10/17/17 09:00 10/18/17 08:47 Miralax PO 17 gm DAILY FELISHA Administration Sodium Chloride 10 ml 10/17/17 01:51 10/18/17 00:17 Normal Saline Flush 0.9% IVP 10 ml PRN PRN Administration NEEDED PER PROVIDER ORDERS Sodium Chloride 10 ml 10/17/17 06:00 10/18/17 06:29 Normal Saline Flush 0.9% IVP Not Given Q8HR FELISHA - Physical Exam Wound/Incisions: positive: Dressing dry and intact General Appearance: positive: No acute distress Respiratory: positive: No respiratory distress Cardiovascular: positive: Regular rate & rhythm Extremities: positive: Other (Motor and sensation intact in right lower extremity. Dressing is clean dry and intact.) Impression/Plan - Problem List Problem List: Status post incision and drainage of large right groin abscess postoperative day #1 Encouraged the patient ambulate today. Will continue broad-spectrum antibiotics until cultures have resulted. Continue close glucose monitoring. Will plan for return to the operating room tomorrow for washout. A wound consultation will be placed and the patient will plan tentatively to be discharged home Thursday with a plan for follow-up wound care in the [facility] clinic.
--- NOTE | 2017-10-18 10:29 | PROVIDER PROGRESS NOTE ---
Subjective - Prog Note Date Prog Note Date: 10/18/17 Prog Note Time: 10:28 - Subjective Pt reports feeling: Improved Subjective: Patient denies dysuria, but urine appears tea colored with sediment. She denies SOB, chest pain, N/V or a new cough. She is not motivated to get out of bed as this is uncomfortable when she sits on her wound. UA and culture with a new indwelling guillen to obtain a sample. Precautions to avoid items listed on allergy list. Spoke directly to nursing and wrote a miscellaneous order. Current Medications - Current Medications Current Medications: Active Medications Acetaminophen (Tylenol) 650 mg PO Q4HR PRN PRN Reason: Pain 1 to 4 Famotidine (Pepcid) 20 mg PO DAILY [facility] Last Admin: 10/18/17 08:47 Dose: 20 mg Hydromorphone HCl (Dilaudid Inj Syringe) 0.5 mg IVP Q2H PRN PRN Reason: Pain 8 to 10 Sodium Chloride (Normal Saline 0.9%) 1,000 mls @ 80 mls/hr IV .[id number] [facility] Last Admin: 10/18/17 06:03 Dose: 80 mls/hr Acetaminophen (Ofirmev) 100 mls @ 400 mls/hr IV Q6HR PRN PRN Reason: PAIN Last Infusion: 10/18/17 10:53 Dose: Infused Cefepime HCl 2 gm/ Sodium (Chloride) 100 mls @ 200 mls/hr IV BID [facility] Last Infusion: 10/18/17 10:53 Dose: Infused Vancomycin HCl 2 gm/ Sodium (Chloride) 500 mls @ 250 mls/hr IV Q12H [facility] Last Admin: 10/18/17 11:13 Dose: 250 mls/hr Metronidazole (Flagyl 500 Mg/100 Ml) 500 mg in 100 mls @ 100 mls/hr IV Q6HR [facility] Last Infusion: 10/18/17 14:29 Dose: Infused Insulin Aspart (Novolog) 3 - 11 unit SUBQ 0800,1200,1700,2100 [facility] PRN Reason: Protocol Last Admin: 10/18/17 16:54 Dose: 3 unit Insulin Aspart (Novolog) 7 unit SUBQ TIDWM FELISHA PRN Reason: Protocol Insulin Glargine (Lantus Solostar) 20 unit SUBQ 0600,1800 [facility] Last Admin: 10/18/17 06:14 Dose: 20 unit Ketorolac Tromethamine (Toradol Inj) 30 mg IVP Q6HR PRN PRN Reason: PAIN Stop: 10/22/17 04:17 Last Admin: 10/17/17 16:23 Dose: 30 mg Lidocaine HCl (Xylocaine Uro-Jet 2%) 2.5 ml UR ONCE [facility] Stop: 10/18/17 23:59 Lisinopril (Zestril) 20 mg PO DAILY [facility] Last Admin: 10/18/17 08:48 Dose: 20 mg Polyethylene Glycol (Miralax) 17 gm PO DAILY [facility] Last Admin: 10/18/17 08:47 Dose: 17 gm Prochlorperazine Edisylate (Compazine Inj) 10 mg IVP Q6HR PRN PRN Reason: Nausea / Vomiting Sodium Chloride (Normal Saline Flush 0.9%) 10 ml IVP PRN PRN PRN Reason: NEEDED PER PROVIDER ORDERS Last Admin: 10/18/17 00:17 Dose: 10 ml Sodium Chloride (Normal Saline Flush 0.9%) 10 ml IVP Q8HR [facility] Last Admin: 10/18/17 12:35 Dose: Not Given Temazepam (Restoril) 15 mg PO QPM PRN PRN Reason: Insomnia Lisinopril 20 mg PO DAILY 10/16/17 Objective - Vital Signs/Intake & Output Reviewed Vital Signs: Yes Vital Signs: Vital Signs x48h Temp Pulse Resp BP Pulse Ox 10/18/17 09:54 36.5 C 10/18/17 07:26 37.7 C H 93 18 161/64 H 96 Intake & Output: Intake & Output 10/15/17 10/16/17 10/17/17 10/18/17 23:59 23:59 23:59 23:59 Intake Total 3702.000 1468 Output Total 375 200 Balance 3327.000 1268 - Objective General Appearance: positive: No acute distress, Alert Eyes Bilateral: positive: Normal inspection, PERRL ENT: positive: ENT inspection nml, Pharynx nml Neck: positive: Nml inspection, Thyroid nml, No JVD Respiratory: positive: Chest non-tender, No respiratory distress, Breath sounds nml Cardiovascular: positive: Regular rate & rhythm, No murmur, No gallop Peripheral Pulses: 1+ Dorsalis pedis (R), 1+ Dorsalis pedis (L), 2+ Radial (R), 2+ Radial (L) Abdomen: positive: Non-tender, No organomegaly, Nml bowel sounds, No distention , Other (obese, soft.) Back: positive: Nml inspection Skin: positive: No rash, Warm, Dry Extremities: positive: Non-tender, Full ROM, Nml appearance, Pedal edema ( chronic, no less than normal per patient) Neurologic/Psychiatric: positive: Oriented x3, CN's nml (2-12), Motor nml, Sensation nml, Depressed mood/affect Reflexes: Bicep (R): 3+, Bicep (L): 3+ - Lab Results Fish Bones: 10/18/17 05:07 10/18/17 05:07 Other Labs: Lab Results x24hrs 10/18/17 10/18/17 10/18/17 Range/Units 09:59 07:24 05:44 WBC (4.8-10.8) x10^3/uL RBC (4.20-5.40) 10^6/uL Hgb (12.0-16.0) g/dL Hct (37.0-47.0) % MCV (81.0-99.0) fL MCH (27.0-31.0) pg MCHC (32.0-36.0) g/dL RDW (12.0-15.0) % Plt Count (130-450) 10^3/uL MPV (7.9-10.8) fL Neut # (1.5-6.6) 10^3/uL Lymph # (1.5-3.5) 10^3/uL Fajardo # (0.0-1.0) 10^3/uL Eos # (0.0-0.7) 10^3/uL Baso # (0.0-0.1) 10^3/uL Absolute Nucleated RBC x10^3/uL Nucleated RBC % /100WBC Sodium (135-145) mmol/L Potassium (3.5-5.0) mmol/L Chloride (101-111) mmol/L Carbon Dioxide (21-32) mmol/L Anion Gap (6-13) BUN (6-20) mg/dL Creatinine (0.4-1.0) mg/dL Estimated GFR (MDRD) (>89) Glucose (70-100) mg/dL POC Whole Bld Glucose 235 H 137 H 141 H (70 - 100) mg/dL Calcium (8.5-10.3) mg/dL Total Bilirubin (0.2-1.0) mg/dL AST (10-42) IU/L ALT (10-60) IU/L Alkaline Phosphatase (42-121) IU/L Total Protein (6.7-8.2) g/dL Albumin (3.2-5.5) g/dL Globulin (2.1-4.2) g/dL Albumin/Globulin Ratio (1.0-2.2) 10/18/17 10/18/17 10/18/17 Range/Units 05:07 05:07 04:15 WBC 10.9 H (4.8-10.8) x10^3/uL RBC 3.46 L (4.20-5.40) 10^6/uL Hgb 9.8 L (12.0-16.0) g/dL Hct 29.7 L (37.0-47.0) % MCV 86.0 (81.0-99.0) fL MCH 28.5 (27.0-31.0) pg MCHC 33.1 (32.0-36.0) g/dL RDW 13.6 (12.0-15.0) % Plt Count 281 (130-450) 10^3/uL MPV 7.8 L (7.9-10.8) fL Neut # 8.4 H (1.5-6.6) 10^3/uL Lymph # 1.2 L (1.5-3.5) 10^3/uL Fajardo # 1.0 (0.0-1.0) 10^3/uL Eos # 0.2 (0.0-0.7) 10^3/uL Baso # 0.0 (0.0-0.1) 10^3/uL Absolute Nucleated RBC 0.01 x10^3/uL Nucleated RBC % 0.0 /100WBC Sodium 137 (135-145) mmol/L Potassium 3.4 L (3.5-5.0) mmol/L Chloride 104 (101-111) mmol/L Carbon Dioxide 22 (21-32) mmol/L Anion Gap 11.0 (6-13) BUN 15 (6-20) mg/dL Creatinine 0.7 (0.4-1.0) mg/dL Estimated GFR (MDRD) 91 (>89) Glucose 133 H (70-100) mg/dL POC Whole Bld Glucose 114 H (70 - 100) mg/dL Calcium 7.8 L (8.5-10.3) mg/dL Total Bilirubin 1.0 (0.2-1.0) mg/dL AST 32 (10-42) IU/L ALT 25 (10-60) IU/L Alkaline Phosphatase 81 (42-121) IU/L Total Protein 6.4 L (6.7-8.2) g/dL Albumin 2.3 L (3.2-5.5) g/dL Globulin 4.1 (2.1-4.2) g/dL Albumin/Globulin Ratio 0.6 L (1.0-2.2) 10/18/17 10/17/17 10/17/17 Range/Units 01:54 23:45 22:05 WBC (4.8-10.8) x10^3/uL RBC (4.20-5.40) 10^6/uL Hgb (12.0-16.0) g/dL Hct (37.0-47.0) % MCV (81.0-99.0) fL MCH (27.0-31.0) pg MCHC (32.0-36.0) g/dL RDW (12.0-15.0) % Plt Count (130-450) 10^3/uL MPV (7.9-10.8) fL Neut # (1.5-6.6) 10^3/uL Lymph # (1.5-3.5) 10^3/uL Fajardo # (0.0-1.0) 10^3/uL Eos # (0.0-0.7) 10^3/uL Baso # (0.0-0.1) 10^3/uL Absolute Nucleated RBC x10^3/uL Nucleated RBC % /100WBC Sodium (135-145) mmol/L Potassium (3.5-5.0) mmol/L Chloride (101-111) mmol/L Carbon Dioxide (21-32) mmol/L Anion Gap (6-13) BUN (6-20) mg/dL Creatinine (0.4-1.0) mg/dL Estimated GFR (MDRD) (>89) Glucose (70-100) mg/dL POC Whole Bld Glucose 129 H 189 H 267 H (70 - 100) mg/dL Calcium (8.5-10.3) mg/dL Total Bilirubin (0.2-1.0) mg/dL AST (10-42) IU/L ALT (10-60) IU/L Alkaline Phosphatase (42-121) IU/L Total Protein (6.7-8.2) g/dL Albumin (3.2-5.5) g/dL Globulin (2.1-4.2) g/dL Albumin/Globulin Ratio (1.0-2.2) 10/17/17 10/17/17 10/17/17 Range/Units 22:03 20:11 17:52 WBC (4.8-10.8) x10^3/uL RBC (4.20-5.40) 10^6/uL Hgb (12.0-16.0) g/dL Hct (37.0-47.0) % MCV (81.0-99.0) fL MCH (27.0-31.0) pg MCHC (32.0-36.0) g/dL RDW (12.0-15.0) % Plt Count (130-450) 10^3/uL MPV (7.9-10.8) fL Neut # (1.5-6.6) 10^3/uL Lymph # (1.5-3.5) 10^3/uL Fajardo # (0.0-1.0) 10^3/uL Eos # (0.0-0.7) 10^3/uL Baso # (0.0-0.1) 10^3/uL Absolute Nucleated RBC x10^3/uL Nucleated RBC % /100WBC Sodium (135-145) mmol/L Potassium (3.5-5.0) mmol/L Chloride (101-111) mmol/L Carbon Dioxide (21-32) mmol/L Anion Gap (6-13) BUN (6-20) mg/dL Creatinine (0.4-1.0) mg/dL Estimated GFR (MDRD) (>89) Glucose (70-100) mg/dL POC Whole Bld Glucose < 10 L* 242 H 210 H (70 - 100) mg/dL Calcium (8.5-10.3) mg/dL Total Bilirubin (0.2-1.0) mg/dL AST (10-42) IU/L ALT (10-60) IU/L Alkaline Phosphatase (42-121) IU/L Total Protein (6.7-8.2) g/dL Albumin (3.2-5.5) g/dL Globulin (2.1-4.2) g/dL Albumin/Globulin Ratio (1.0-2.2) 10/17/17 10/17/17 10/17/17 Range/Units 15:58 12:45 11:37 WBC (4.8-10.8) x10^3/uL RBC (4.20-5.40) 10^6/uL Hgb (12.0-16.0) g/dL Hct (37.0-47.0) % MCV (81.0-99.0) fL MCH (27.0-31.0) pg MCHC (32.0-36.0) g/dL RDW (12.0-15.0) % Plt Count (130-450) 10^3/uL MPV (7.9-10.8) fL Neut # (1.5-6.6) 10^3/uL Lymph # (1.5-3.5) 10^3/uL Fajardo # (0.0-1.0) 10^3/uL Eos # (0.0-0.7) 10^3/uL Baso # (0.0-0.1) 10^3/uL Absolute Nucleated RBC x10^3/uL Nucleated RBC % /100WBC Sodium (135-145) mmol/L Potassium (3.5-5.0) mmol/L Chloride (101-111) mmol/L Carbon Dioxide (21-32) mmol/L Anion Gap (6-13) BUN (6-20) mg/dL Creatinine (0.4-1.0) mg/dL Estimated GFR (MDRD) (>89) Glucose (70-100) mg/dL POC Whole Bld Glucose 172 H 260 H 353 H (70 - 100) mg/dL Calcium (8.5-10.3) mg/dL Total Bilirubin (0.2-1.0) mg/dL AST (10-42) IU/L ALT (10-60) IU/L Alkaline Phosphatase (42-121) IU/L Total Protein (6.7-8.2) g/dL Albumin (3.2-5.5) g/dL Globulin (2.1-4.2) g/dL Albumin/Globulin Ratio (1.0-2.2) 10/17/17 Range/Units 11:15 WBC (4.8-10.8) x10^3/uL RBC (4.20-5.40) 10^6/uL Hgb (12.0-16.0) g/dL Hct (37.0-47.0) % MCV (81.0-99.0) fL MCH (27.0-31.0) pg MCHC (32.0-36.0) g/dL RDW (12.0-15.0) % Plt Count (130-450) 10^3/uL MPV (7.9-10.8) fL Neut # (1.5-6.6) 10^3/uL Lymph # (1.5-3.5) 10^3/uL Fajardo # (0.0-1.0) 10^3/uL Eos # (0.0-0.7) 10^3/uL Baso # (0.0-0.1) 10^3/uL Absolute Nucleated RBC x10^3/uL Nucleated RBC % /100WBC Sodium (135-145) mmol/L Potassium (3.5-5.0) mmol/L Chloride (101-111) mmol/L Carbon Dioxide (21-32) mmol/L Anion Gap (6-13) BUN (6-20) mg/dL Creatinine (0.4-1.0) mg/dL Estimated GFR (MDRD) (>89) Glucose (70-100) mg/dL POC Whole Bld Glucose 345 H (70 - 100) mg/dL Calcium (8.5-10.3) mg/dL Total Bilirubin (0.2-1.0) mg/dL AST (10-42) IU/L ALT (10-60) IU/L Alkaline Phosphatase (42-121) IU/L Total Protein (6.7-8.2) g/dL Albumin (3.2-5.5) g/dL Globulin (2.1-4.2) g/dL Albumin/Globulin Ratio (1.0-2.2) - Diagnostic Imaging Diagnostic Imaging Results: positive: Final report reviewed Assessment/Plan - Problem List (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 Patient has an elevated BMI of 52.1, and is morbidly obese. Patient denies awareness of diabetes, although has had elaborate wounds in the past. Blood glucose has been elevated since surgery of >200. Plan: Continue Lantus, which was increased last PM, sliding scale and consider an insulin gtt if blood sugars are unmanaged. (2) Cutaneous abscess of limb, unspecified Impression: Patient notes that she has been getting boils since age 15 years and they are generally self limiting. She arrived in our ED with a right inner thigh boil that was extremely painful, had fevers, and appeared infected, so general surgery was consulted. Patient was taken to OR, and is now post op. Plan: Wound care per nursing and surgery following. (3) Essential hypertension Impression: Patient has a known history of this and was on lisinopril at home. Blood pressure today was 161/88. An additional agent may be added upon discharge. Plan: Continue home dose and monitor vital signs. (4) Morbid (severe) obesity due to excess calories Impression: Patient has a grossly elevated BMI of 52.1, and has had weight issues for "as long as she can remember". Complications of this are likely hypertension and now diabetes mellitus type 2. 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 (5) Hyperglycemia Impression: Patient's blood sugars were over 200 shortly after surgery, but overnight became less than 200. To prevent moving to the ICU for an insulin gtt, patient was placed on every 2 hour checks. General surgery is aware and requests that blood glucose stay less than 200, so efforts have been taken to ensure this. Plan: Monitor frequently to maintain a blood glucose less than 200 to lessen the likelihood of a post-op infection. (6) Abnormal urine sediment Impression: Patient is noted to have urinary sediment and tea colored urine. She denies dysuria, incontinence, or other UTI symptoms. Suspect infection due to the grossly elevated HgA1C of 12.5. Plan: Change indwelling guillen to obtain a new urine sample, using precautions to avoid items on allergy list.
[2017-10-18] MEDS: VANCOMYCIN INJ 2 GM in SODIUM CHLORIDE 0.9% 500 ML IV SCH ×2 (11:13→21:56)
[2017-10-18] MEDS ORDERED: LIDOCAINE 2% URO-JET 5 ML SYRINGE UR SCH (17:35)
[2017-10-18] MEDS ORDERED: INSULIN ASPART 300 UNIT/3 ML PEN SUBQ SCH (19:00)
[2017-10-18] MEDS: KETOROLAC 30 MG/ML VIAL IVP PRN (19:27)
[2017-10-18 21:27] LABS: GLUCOSE, URINE (UA) NEGATIVE (NEGATIVE); KETONES,URINE (UA) TRACE mg/dL (NEGATIVE); LEUKOCYTE ESTERASE, URINE NEGATIVE (NEGATIVE); NITRITE,URINE NEGATIVE (NEGATIVE); OCCULT BLOOD,URINE LARGE (NEGATIVE); PH,URINE 6.5 PH (5.0-7.5); PROTEIN,URINE 100 mg/dL (NEGATIVE); UROBILINOGEN,URINE 2 E.U./dL (NORMAL)
[2017-10-18 21:35] LABS: BILIRUBIN,URINE NEGATIVE (NEGATIVE); CLARITY,URINE SL. CLOUDY (CLEAR); ICTOTEST,URINE NEGATIVE
[2017-10-18 21:36] LABS: AMORPHOUS SEDIMENT,UR Moderate /LPF; BACTERIA,URINE Few /HPF (None Seen); RBC,URINE TNTC /HPF (0-5); SQUAMOUS EPITHELIAL CELL,UR MOD Squamous (<= Few)
[2017-10-19] MEDS: metroNIDAZOLE 500 MG/100 ML 500 MG/100 ML BAG IV SCH ×4 (01:14→18:57)
[2017-10-19] MEDS: SODIUM CHLORIDE 0.9% 1,000 ML IV SCH ×2 (02:52→17:44)
[2017-10-19] MEDS: PROCHLORPERAZINE 10 MG/2 ML VIAL IVP PRN ×2 (05:39→15:32)
[2017-10-19] MEDS: SODIUM CHLORIDE FLUSH 0.9% 10 ML SYRINGE IVP SCH ×3 (05:39→21:39)
[2017-10-19 06:13] LABS: BASOPHILS % (AUTO) 0.4 %; EOSINOPHILS # (AUTO) 0.3 10^3/uL (0.0-0.7); EOSINOPHILS % (AUTO) 3.4 %; HGB - HEMOGLOBIN 9.7 g/dL (12.0-16.0); LYMPHOCYTES # (AUTO) 1.3 10^3/uL (1.5-3.5); LYMPHOCYTES % (AUTO) 14.7 %; MEAN CORPUSCULAR HEMOGLOBIN 27.8 pg (27.0-31.0); MEAN CORPUSCULAR HGB CONC 32.1 g/dL (32.0-36.0); MEAN CORPUSCULAR VOLUME 86.6 fL (81.0-99.0); MEAN PLATELET VOLUME 7.8 fL (7.9-10.8); MONOCYTES % (AUTO) 10.7 %; NEUTROPHILS # (AUTO) 6.3 10^3/uL (1.5-6.6); NEUTROPHILS % (AUTO) 70.8 %; PLT - PLATELET COUNT 298 10^3/uL (130-450); RED BLOOD COUNT 3.51 10^6/uL (4.20-5.40); RED CELL DISTRIBUTION WIDTH 14.3 % (12.0-15.0)
[2017-10-19 06:22] LABS: VANCOMYCIN,TROUGH 25.1 ug/mL (5.0-15.0)
[2017-10-19] MEDS: INSULIN GLARGINE 300 UNIT/3 ML PEN SUBQ SCH ×2 (06:31→18:59)
[2017-10-19 06:35] LABS: ALBUMIN 2.3 g/dL (3.2-5.5); ALBUMIN/GLOBULIN RATIO 0.5 (1.0-2.2); BILIRUBIN,TOTAL 0.5 mg/dL (0.2-1.0); CALCIUM 7.3 mg/dL (8.5-10.3); CREATININE 0.9 mg/dL (0.4-1.0); TOTAL PROTEIN 6.5 g/dL (6.7-8.2)
[2017-10-19] MEDS: INSULIN ASPART 300 UNIT/3 ML PEN SUBQ SCH ×7 (08:54→21:58)
[2017-10-19] MEDS: CEFEPIME 2 GM in SODIUM CHLORIDE 0.9% MINIBAG 100 ML IV SCH ×2 (08:55→21:35)
[2017-10-19] MEDS: LISINOPRIL 20 MG TABLET PO SCH (08:55)
[2017-10-19] MEDS: POLYETHYLENE GLYCOL 3350 17 GM PACKET PO SCH (09:01)
[2017-10-19] MEDS: FAMOTIDINE 20 MG TABLET PO SCH (09:01)
[2017-10-19] MEDS: VANCOMYCIN INJ 2 GM in SODIUM CHLORIDE 0.9% 500 ML IV SCH ×2 (10:40→22:59)
--- NOTE | 2017-10-19 10:50 | PROVIDER PROGRESS NOTE ---
Subjective - Prog Note Date Prog Note Date: 10/19/17 Prog Note Time: 10:50 - Subjective Pt reports feeling: No change Subjective: Patient is sleepy today, which is expected. She denies SOB, chest pain, N/V or a new cough. Call recieved from general surgery, Dr. Henriquez who reports no complications during or after surgery. Current Medications - Current Medications Current Medications: Active Medications Acetaminophen (Tylenol) 650 mg PO Q4HR PRN PRN Reason: Pain 1 to 4 Famotidine (Pepcid) 20 mg PO DAILY [facility] Last Admin: 10/19/17 09:01 Dose: Not Given Hydromorphone HCl (Dilaudid Inj Syringe) 0.5 mg IVP Q2H PRN PRN Reason: Pain 8 to 10 Sodium Chloride (Normal Saline 0.9%) 1,000 mls @ 80 mls/hr IV .[id number] [facility] Last Infusion: 10/19/17 10:40 Dose: 0 mls/hr Acetaminophen (Ofirmev) 100 mls @ 400 mls/hr IV Q6HR PRN PRN Reason: PAIN Last Infusion: 10/18/17 20:19 Dose: Infused Cefepime HCl 2 gm/ Sodium (Chloride) 100 mls @ 200 mls/hr IV BID [facility] Last Infusion: 10/19/17 09:30 Dose: Infused Vancomycin HCl 2 gm/ Sodium (Chloride) 500 mls @ 250 mls/hr IV Q12H [facility] Last Admin: 10/19/17 10:40 Dose: 250 mls/hr Metronidazole (Flagyl 500 Mg/100 Ml) 500 mg in 100 mls @ 100 mls/hr IV Q6HR [facility] Last Infusion: 10/19/17 06:54 Dose: Infused Insulin Aspart (Novolog) 3 - 11 unit SUBQ 0800,1200,1700,2100 FELISHA PRN Reason: Protocol Last Admin: 10/19/17 12:00 Dose: Not Given Insulin Aspart (Novolog) 7 unit SUBQ TIDWM [facility] PRN Reason: Protocol Last Admin: 10/19/17 13:29 Dose: Not Given Insulin Glargine (Lantus Solostar) 20 unit SUBQ 0600,1800 [facility] Last Admin: 10/19/17 06:31 Dose: 20 unit Ketorolac Tromethamine (Toradol Inj) 30 mg IVP Q6HR PRN PRN Reason: PAIN Stop: 10/22/17 04:17 Last Admin: 10/18/17 19:27 Dose: 30 mg Lisinopril (Zestril) 20 mg PO DAILY [facility] Last Admin: 10/19/17 08:55 Dose: 20 mg Polyethylene Glycol (Miralax) 17 gm PO DAILY [facility] Last Admin: 10/19/17 09:01 Dose: Not Given Prochlorperazine Edisylate (Compazine Inj) 10 mg IVP Q6HR PRN PRN Reason: Nausea / Vomiting Last Admin: 10/19/17 05:39 Dose: 10 mg Sodium Chloride (Normal Saline Flush 0.9%) 10 ml IVP PRN PRN PRN Reason: NEEDED PER PROVIDER ORDERS Last Admin: 10/18/17 00:17 Dose: 10 ml Sodium Chloride (Normal Saline Flush 0.9%) 10 ml IVP Q8HR [facility] Last Admin: 10/19/17 05:39 Dose: 10 ml Temazepam (Restoril) 15 mg PO QPM PRN PRN Reason: Insomnia Lisinopril 20 mg PO DAILY 10/16/17 Objective - Vital Signs/Intake & Output Reviewed Vital Signs: Yes Vital Signs: Vital Signs x48h Temp Pulse Resp BP Pulse Ox 10/19/17 08:00 37.1 C 61 16 167/62 H 98 Intake & Output: Intake & Output 10/16/17 10/17/17 10/18/17 10/19/17 23:59 23:59 23:59 23:59 Intake Total 3702.000 4758 1377.333 Output Total 375 730 405 Balance 3327.000 4028 972.333 - Objective General Appearance: positive: No acute distress, Alert, Lethargic Eyes Bilateral: positive: Normal inspection, PERRL ENT: positive: ENT inspection nml, Pharynx nml, No signs of dehydration, Dry mucous membranes Neck: positive: Nml inspection, Thyroid nml, No JVD, Other (large neck) Respiratory: positive: Chest non-tender, No respiratory distress, Breath sounds nml, Other (diminished) Cardiovascular: positive: Regular rate & rhythm, No murmur, No gallop, Decreased pulse(s), Other (distant) Peripheral Pulses: 1+ Radial (R), 1+ Radial (L) Abdomen: positive: Non-tender, No organomegaly, Nml bowel sounds, Other (obese, soft) Back: positive: Nml inspection Skin: positive: No rash, Warm, Dry Extremities: positive: Non-tender, Full ROM, Nml appearance, Pedal edema ( chronic), Joint swelling Neurologic/Psychiatric: positive: Oriented x3, CN's nml (2-12), Motor nml, Sensation nml, Depressed mood/affect Reflexes: Bicep (R): 3+, Bicep (L): 3+ - Lab Results Fish Bones: 10/19/17 05:33 10/19/17 05:20 Other Labs: Lab Results x24hrs 10/19/17 10/19/17 10/19/17 Range/Units 06:26 05:33 05:20 WBC 9.0 (4.8-10.8) x10^3/uL RBC 3.51 L (4.20-5.40) 10^6/uL Hgb 9.7 L (12.0-16.0) g/dL Hct 30.4 L (37.0-47.0) % MCV 86.6 (81.0-99.0) fL MCH 27.8 (27.0-31.0) pg MCHC 32.1 (32.0-36.0) g/dL RDW 14.3 (12.0-15.0) % Plt Count 298 (130-450) 10^3/uL MPV 7.8 L (7.9-10.8) fL Neut # 6.3 (1.5-6.6) 10^3/uL Lymph # 1.3 L (1.5-3.5) 10^3/uL Coal # 1.0 (0.0-1.0) 10^3/uL Eos # 0.3 (0.0-0.7) 10^3/uL Baso # 0.0 (0.0-0.1) 10^3/uL Absolute Nucleated RBC 0.00 x10^3/uL Nucleated RBC % 0.0 /100WBC Sodium 134 L (135-145) mmol/L Potassium 3.1 L (3.5-5.0) mmol/L Chloride 104 (101-111) mmol/L Carbon Dioxide 21 (21-32) mmol/L Anion Gap 9.0 (6-13) BUN 15 (6-20) mg/dL Creatinine 0.9 (0.4-1.0) mg/dL Estimated GFR (MDRD) 68 L (>89) Glucose 168 H (70-100) mg/dL POC Whole Bld Glucose 169 H (70 - 100) mg/dL Calcium 7.3 L (8.5-10.3) mg/dL Total Bilirubin 0.5 (0.2-1.0) mg/dL AST 32 (10-42) IU/L ALT 24 (10-60) IU/L Alkaline Phosphatase 86 (42-121) IU/L Total Protein 6.5 L (6.7-8.2) g/dL Albumin 2.3 L (3.2-5.5) g/dL Globulin 4.2 (2.1-4.2) g/dL Albumin/Globulin Ratio 0.5 L (1.0-2.2) Urine Color Urine Clarity (CLEAR) Urine pH (5.0-7.5) PH Ur Specific Queen (1.002-1.030) Urine Protein (NEGATIVE) mg/dL Urine Glucose (UA) (NEGATIVE) mg/dL Urine Ketones (NEGATIVE) mg/dL Urine Occult Blood (NEGATIVE) Urine Nitrite (NEGATIVE) Urine Bilirubin (NEGATIVE) Urine Urobilinogen (NORMAL) E.U./dL Ur Leukocyte Esterase (NEGATIVE) Urine RBC (0-5) /HPF Urine WBC (0-5) /HPF Ur Squamous Epith Cells (<= Few) Amorphous Sediment /LPF Urine Bacteria (None Seen) /HPF Urine Culture Comments Last Dose Date Last Dose Time Vancomycin Trough (5.0-15.0) ug/mL 10/19/17 10/18/17 10/18/17 Range/Units 05:20 21:20 12:22 WBC (4.8-10.8) x10^3/uL RBC (4.20-5.40) 10^6/uL Hgb (12.0-16.0) g/dL Hct (37.0-47.0) % MCV (81.0-99.0) fL MCH (27.0-31.0) pg MCHC (32.0-36.0) g/dL RDW (12.0-15.0) % Plt Count (130-450) 10^3/uL MPV (7.9-10.8) fL Neut # (1.5-6.6) 10^3/uL Lymph # (1.5-3.5) 10^3/uL Coal # (0.0-1.0) 10^3/uL Eos # (0.0-0.7) 10^3/uL Baso # (0.0-0.1) 10^3/uL Absolute Nucleated RBC x10^3/uL Nucleated RBC % /100WBC Sodium (135-145) mmol/L Potassium (3.5-5.0) mmol/L Chloride (101-111) mmol/L Carbon Dioxide (21-32) mmol/L Anion Gap (6-13) BUN (6-20) mg/dL Creatinine (0.4-1.0) mg/dL Estimated GFR (MDRD) (>89) Glucose (70-100) mg/dL POC Whole Bld Glucose 257 H (70 - 100) mg/dL Calcium (8.5-10.3) mg/dL Total Bilirubin (0.2-1.0) mg/dL AST (10-42) IU/L ALT (10-60) IU/L Alkaline Phosphatase (42-121) IU/L Total Protein (6.7-8.2) g/dL Albumin (3.2-5.5) g/dL Globulin (2.1-4.2) g/dL Albumin/Globulin Ratio (1.0-2.2) Urine Color YELLOW Urine Clarity SL. CLOUDY (CLEAR) Urine pH 6.5 (5.0-7.5) PH Ur Specific Queen 1.025 (1.002-1.030) Urine Protein 100 H (NEGATIVE) mg/dL Urine Glucose (UA) NEGATIVE (NEGATIVE) mg/dL Urine Ketones TRACE (NEGATIVE) mg/dL Urine Occult Blood LARGE H (NEGATIVE) Urine Nitrite NEGATIVE (NEGATIVE) Urine Bilirubin NEGATIVE (NEGATIVE) Urine Urobilinogen 2 H (NORMAL) E.U./dL Ur Leukocyte Esterase NEGATIVE (NEGATIVE) Urine RBC TNTC H (0-5) /HPF Urine WBC 0-3 (0-5) /HPF Ur Squamous Epith Cells MOD Squamous H (<= Few) Amorphous Sediment Moderate /LPF Urine Bacteria Few (None Seen) /HPF Urine Culture Comments NOT INDICATED Last Dose Date 10/18/17 Last Dose Time 2155 Vancomycin Trough 25.1 H* (5.0-15.0) ug/mL - Diagnostic Imaging Diagnostic Imaging Results: positive: Final report reviewed Assessment/Plan - Problem List (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 Patient has an elevated BMI of 52.1, and is morbidly obese. Patient denies awareness of diabetes, although has had elaborate wounds in the past. Blood glucose has been elevated since surgery of >200. Plan: Continue Lantus, which was increased last PM, sliding scale and consider an insulin gtt if blood sugars are unmanaged. (2) Cutaneous abscess of limb, unspecified Impression: Patient notes that she has been getting boils since age 15 years and they are generally self limiting. She arrived in our ED with a right inner thigh boil that was extremely painful, had fevers, and appeared infected, so general surgery was consulted. Patient was taken to OR today for the second time for a wash-out, and is now post op. Patient will need to complete a total of 2 full weeks of antibiotics. Plan: Continue IV antibiotics. Wound care per nursing and surgery following. (3) Essential hypertension Impression: Patient has a known history of this and was on lisinopril at home. Blood pressure today was 161/88. An additional agent may be added upon discharge. Plan: Continue home dose and monitor vital signs. (4) Morbid (severe) obesity due to excess calories Impression: Patient has a grossly elevated BMI of 52.1, and has had weight issues for "as long as she can remember". Complications of this are likely hypertension and now diabetes mellitus type 2. 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 (5) Hyperglycemia Impression: General surgery is aware and requests that blood glucose stay less than 200, so efforts have been taken to ensure this. Patient's last glucose is noted to be 133, within our goal of less than 200. Plan: Monitor frequently to maintain a blood glucose less than 200 to lessen the likelihood of a post-op infection. (6) Abnormal urine sediment Impression: Patient is noted to have urinary sediment and tea colored urine. She denies dysuria, incontinence, or other UTI symptoms. Suspect infection due to the grossly elevated HgA1C of 12.5. Plan: Change indwelling guillen to obtain a new urine sample, using precautions to avoid items on allergy list.
[2017-10-19] MEDS ORDERED: SODIUM CHLORIDE 0.9% 1,000 ML IV ONE (12:40)
[2017-10-19] MEDS ORDERED: MIDAZOLAM 2 MG/2 ML VIAL IVP ONE (12:45)
[2017-10-19] MEDS ORDERED: fentaNYL 100 MCG/2 ML VIAL IVP ONE (12:45)
[2017-10-19] MEDS ORDERED: PROPOFOL 200 MG/20 ML VIAL IVP ONE (12:45)
[2017-10-19] MEDS ORDERED: BUPIVACAINE 0.25% PF 30 ML VIAL SUBQ ONE ×2 (13:02)
--- NOTE | 2017-10-19 13:28 | OPERATIVE REPORT ---
Operative Report - General Admit Date: 10/17/17 Procedure Date: 10/19/17 Planned Procedure: debridement and washout of right groin abscess Pre-Op Diagnosis: right groin abscess s/p I and D Procedure Performed: Debridement and washout of right groin abscess Post Op Diagnosis: same - Procedure Note Primary Surgeon: carlita Anesthesia Technique: MAC - Other Other Information/Narrative: After obtaining informed consent for the patient she was brought into the operating room and positioned in the modified lithotomy position with the right leg and stirrups after being sedated by anesthesia. She was subsequently prepped and draped in the usual sterile fashion and a timeout taken according to protocol. Her previous abscess cavity was inspected and some persistently necrotic tissue was present at the base of the wound and medially. Minimal amount of pus was also evacuated from the medial thigh. Additional debridement of this necrotic tissue was performed. The abscess cavity was then profusely washed with the pulse rubber tubing backer utilizing 3 L of saline. Following this hemostasis was noted to be achieved. The cavity was then packed with Betadine soaked Kerlix fluffs and an Derek wrap were applied. The patient was taken to recovery room in stable condition. Estimated blood loss 10 cc Complications: None Specimens: None Plan: As discussed with the medical team the patient will require a wound care consult and packing changes 3 times per week upon discharge. She will require a total of 2 weeks of antibiotics which can be transitioned to oral once sensitivities from her wound cultures have resulted provided that her cultures are sensitive to oral antibiotics. She should also follow-up with her primary care provider regarding her newly diagnosed diabetes. She will follow-up with me in the office 1 week from discharge.
[2017-10-19] MEDS: SODIUM CHLORIDE FLUSH 0.9% 10 ML SYRINGE IVP PRN (15:31)
[2017-10-19] MEDS: ACETAMINOPHEN 1,000 MG/100 ML 100 ML IV PRN (17:54)
[2017-10-19] MEDS ORDERED: IBUPROFEN 600 MG TABLET PO PRN (19:13)
[2017-10-20] MEDS: metroNIDAZOLE 500 MG/100 ML 500 MG/100 ML BAG IV SCH ×3 (01:17→18:13)
[2017-10-20] MEDS: SODIUM CHLORIDE FLUSH 0.9% 10 ML SYRINGE IVP SCH ×3 (05:42→22:04)
[2017-10-20 06:03] LABS: BASOPHILS % (AUTO) 0.4 %; EOSINOPHILS # (AUTO) 0.2 10^3/uL (0.0-0.7); EOSINOPHILS % (AUTO) 1.7 %; HGB - HEMOGLOBIN 9.3 g/dL (12.0-16.0); LYMPHOCYTES # (AUTO) 1.4 10^3/uL (1.5-3.5); LYMPHOCYTES % (AUTO) 13.9 %; MEAN CORPUSCULAR HEMOGLOBIN 27.6 pg (27.0-31.0); MEAN CORPUSCULAR HGB CONC 32.3 g/dL (32.0-36.0); MEAN CORPUSCULAR VOLUME 85.5 fL (81.0-99.0); MEAN PLATELET VOLUME 7.1 fL (7.9-10.8); MONOCYTES # (AUTO) 1.1 10^3/uL (0.0-1.0); MONOCYTES % (AUTO) 10.6 %; NEUTROPHILS # (AUTO) 7.3 10^3/uL (1.5-6.6); NEUTROPHILS % (AUTO) 73.4 %; PLT - PLATELET COUNT 325 10^3/uL (130-450); RED BLOOD COUNT 3.39 10^6/uL (4.20-5.40); RED CELL DISTRIBUTION WIDTH 14.3 % (12.0-15.0); WHITE BLOOD COUNT 9.9 x10^3/uL (4.8-10.8)
[2017-10-20 06:18] LABS: ALBUMIN 2.2 g/dL (3.2-5.5); ALBUMIN/GLOBULIN RATIO 0.6 (1.0-2.2); BILIRUBIN,TOTAL 0.5 mg/dL (0.2-1.0); CALCIUM 7.5 mg/dL (8.5-10.3); CREATININE 0.6 mg/dL (0.4-1.0); TOTAL PROTEIN 6.2 g/dL (6.7-8.2)
[2017-10-20] MEDS: PROCHLORPERAZINE 10 MG/2 ML VIAL IVP PRN (06:27)
[2017-10-20] MEDS: INSULIN GLARGINE 300 UNIT/3 ML PEN SUBQ SCH ×2 (06:28→18:29)
[2017-10-20] MEDS: INSULIN ASPART 300 UNIT/3 ML PEN SUBQ SCH ×8 (09:01→23:13)
[2017-10-20] MEDS: LISINOPRIL 20 MG TABLET PO SCH (09:01)
[2017-10-20] MEDS: POLYETHYLENE GLYCOL 3350 17 GM PACKET PO SCH (09:01)
[2017-10-20] MEDS: CEFEPIME 2 GM in SODIUM CHLORIDE 0.9% MINIBAG 100 ML IV SCH ×2 (09:01→21:16)
[2017-10-20] MEDS: FAMOTIDINE 20 MG TABLET PO SCH (09:01)
--- NOTE | 2017-10-20 11:05 | PROVIDER PROGRESS NOTE ---
Subjective - General Admit Date: 10/17/17 Procedure Date: 10/19/17 Post Op Days: 1 Procedure Performed: Incision and drainage right groin abscess POD 3 washout, debridement POD 1 - Review of Systems Wound/Incisions: positive: Dressing dry and intact General: positive: No symptoms Cardiovascular: positive: No symptoms Gastrointestinal: positive: No symptoms Objective - Patient Data Reviewed Vital Signs: Yes Vital Signs: Vital Signs x48h Temp Pulse Resp BP Pulse Ox 10/20/17 08:00 36.9 C 80 20 181/79 H 98 10/20/17 05:00 37.1 C 83 16 98 Intake & Output: Intake and Output Totals x24h 10/18/17 10/19/17 10/20/17 23:59 23:59 23:59 Intake Total 4758 3181.333 1800 Output Total 730 1305 400 Balance 4028 0095.651 4095 - Lab Results Lab Results: 10/20/17 05:50 10/20/17 05:50 Other Lab Results: Lab Results x24hrs 10/20/17 10/20/17 10/20/17 Range/Units 06:05 05:50 05:50 WBC 9.9 (4.8-10.8) x10^3/uL RBC 3.39 L (4.20-5.40) 10^6/uL Hgb 9.3 L (12.0-16.0) g/dL Hct 28.9 L (37.0-47.0) % MCV 85.5 (81.0-99.0) fL MCH 27.6 (27.0-31.0) pg MCHC 32.3 (32.0-36.0) g/dL RDW 14.3 (12.0-15.0) % Plt Count 325 (130-450) 10^3/uL MPV 7.1 L (7.9-10.8) fL Neut # 7.3 H (1.5-6.6) 10^3/uL Lymph # 1.4 L (1.5-3.5) 10^3/uL [place] # 1.1 H (0.0-1.0) 10^3/uL Eos # 0.2 (0.0-0.7) 10^3/uL Baso # 0.0 (0.0-0.1) 10^3/uL Absolute Nucleated RBC 0.01 x10^3/uL Nucleated RBC % 0.1 /100WBC Sodium 137 (135-145) mmol/L Potassium 3.4 L (3.5-5.0) mmol/L Chloride 105 (101-111) mmol/L Carbon Dioxide 21 (21-32) mmol/L Anion Gap 11.0 (6-13) BUN 10 (6-20) mg/dL Creatinine 0.6 (0.4-1.0) mg/dL Estimated GFR (MDRD) 109 (>89) Glucose 133 H (70-100) mg/dL POC Whole Bld Glucose 130 H (70 - 100) mg/dL Calcium 7.5 L (8.5-10.3) mg/dL Total Bilirubin 0.5 (0.2-1.0) mg/dL AST 26 (10-42) IU/L ALT 22 (10-60) IU/L Alkaline Phosphatase 73 (42-121) IU/L Total Protein 6.2 L (6.7-8.2) g/dL Albumin 2.2 L (3.2-5.5) g/dL Globulin 4.0 (2.1-4.2) g/dL Albumin/Globulin Ratio 0.6 L (1.0-2.2) 10/20/17 10/19/17 10/19/17 Range/Units 00:08 20:52 16:31 WBC (4.8-10.8) x10^3/uL RBC (4.20-5.40) 10^6/uL Hgb (12.0-16.0) g/dL Hct (37.0-47.0) % MCV (81.0-99.0) fL MCH (27.0-31.0) pg MCHC (32.0-36.0) g/dL RDW (12.0-15.0) % Plt Count (130-450) 10^3/uL MPV (7.9-10.8) fL Neut # (1.5-6.6) 10^3/uL Lymph # (1.5-3.5) 10^3/uL [place] # (0.0-1.0) 10^3/uL Eos # (0.0-0.7) 10^3/uL Baso # (0.0-0.1) 10^3/uL Absolute Nucleated RBC x10^3/uL Nucleated RBC % /100WBC Sodium (135-145) mmol/L Potassium (3.5-5.0) mmol/L Chloride (101-111) mmol/L Carbon Dioxide (21-32) mmol/L Anion Gap (6-13) BUN (6-20) mg/dL Creatinine (0.4-1.0) mg/dL Estimated GFR (MDRD) (>89) Glucose (70-100) mg/dL POC Whole Bld Glucose 169 H 145 H 124 H (70 - 100) mg/dL Calcium (8.5-10.3) mg/dL Total Bilirubin (0.2-1.0) mg/dL AST (10-42) IU/L ALT (10-60) IU/L Alkaline Phosphatase (42-121) IU/L Total Protein (6.7-8.2) g/dL Albumin (3.2-5.5) g/dL Globulin (2.1-4.2) g/dL Albumin/Globulin Ratio (1.0-2.2) 10/19/17 Range/Units 11:53 WBC (4.8-10.8) x10^3/uL RBC (4.20-5.40) 10^6/uL Hgb (12.0-16.0) g/dL Hct (37.0-47.0) % MCV (81.0-99.0) fL MCH (27.0-31.0) pg MCHC (32.0-36.0) g/dL RDW (12.0-15.0) % Plt Count (130-450) 10^3/uL MPV (7.9-10.8) fL Neut # (1.5-6.6) 10^3/uL Lymph # (1.5-3.5) 10^3/uL [place] # (0.0-1.0) 10^3/uL Eos # (0.0-0.7) 10^3/uL Baso # (0.0-0.1) 10^3/uL Absolute Nucleated RBC x10^3/uL Nucleated RBC % /100WBC Sodium (135-145) mmol/L Potassium (3.5-5.0) mmol/L Chloride (101-111) mmol/L Carbon Dioxide (21-32) mmol/L Anion Gap (6-13) BUN (6-20) mg/dL Creatinine (0.4-1.0) mg/dL Estimated GFR (MDRD) (>89) Glucose (70-100) mg/dL POC Whole Bld Glucose 133 H (70 - 100) mg/dL Calcium (8.5-10.3) mg/dL Total Bilirubin (0.2-1.0) mg/dL AST (10-42) IU/L ALT (10-60) IU/L Alkaline Phosphatase (42-121) IU/L Total Protein (6.7-8.2) g/dL Albumin (3.2-5.5) g/dL Globulin (2.1-4.2) g/dL Albumin/Globulin Ratio (1.0-2.2) - Current Medications Current Medications: Current Medications Generic Name Dose Route Start Last Admin Trade Name Freq PRN Reason Stop Dose Admin Famotidine 20 mg 10/17/17 09:00 10/20/17 09:01 Pepcid PO 20 mg DAILY FELISHA Administration Acetaminophen 100 mls @ 400 mls/hr 10/17/17 01:55 10/19/17 21:55 Ofirmev IV Infused Q6HR PRN Infusion PAIN Cefepime HCl 2 gm/ Sodium 100 mls @ 200 mls/hr 10/17/17 08:00 10/20/17 09:32 Chloride IV Infused BID FELISHA Infusion Vancomycin HCl 2 gm/ Sodium 500 mls @ 250 mls/hr 10/17/17 10:00 10/20/17 01: 00 Chloride IV Infused Q12H FELISHA Infusion Metronidazole 500 mg in 100 mls @ 100 mls/hr 10/17/17 12:00 10/20/17 07:30 Flagyl 500 Mg/100 Ml IV Infused Q6HR FELISHA Infusion Insulin Aspart 3 - 11 unit 10/18/17 12:00 10/20/17 09:01 Novolog SUBQ Not Given 0800,1200,1700,2100 FELISHA Protocol Insulin Aspart 7 unit 10/18/17 17:30 10/20/17 09:02 Novolog SUBQ 7 unit TIDWM FELISHA Administration Protocol Insulin Glargine 20 unit 10/17/17 19:20 10/20/17 06:28 Lantus Marshostar SUBQ 20 unit 0600,1800 FELISHA Administration Ketorolac Tromethamine 30 mg 10/17/17 04:18 10/18/17 19:27 Toradol Inj IVP 10/22/17 04:17 30 mg Q6HR PRN Administration PAIN Lisinopril 20 mg 10/17/17 08:00 10/20/17 09:01 Zestril PO 20 mg DAILY FELISHA Administration Polyethylene Glycol 17 gm 10/17/17 09:00 10/20/17 09:01 Miralax PO 17 gm DAILY FELISHA Administration Prochlorperazine Edisylate 10 mg 10/17/17 01:51 10/20/17 06:27 Compazine Inj IVP 10 mg Q6HR PRN Administration Nausea / Vomiting Sodium Chloride 10 ml 10/17/17 01:51 10/19/17 15:31 Normal Saline Flush 0.9% IVP 10 ml PRN PRN Administration NEEDED PER PROVIDER ORDERS Sodium Chloride 10 ml 10/17/17 06:00 10/20/17 05:42 Normal Saline Flush 0.9% IVP Not Given Q8HR FELISHA - Physical Exam Wound/Incisions: positive: Dressing dry and intact, No drainage General Appearance: positive: No acute distress Respiratory: positive: No respiratory distress Cardiovascular: positive: Regular rate & rhythm Neurologic/Psychiatric: positive: Oriented x3 Impression/Plan - Problem List Problem List: Right groin abscess status post incision and drainage postop day 3 and washout and debridement postop day 1 Wound cultures from the ER have resulted as skin ozzy only. OR wound cultures are still pending. Would recommend awaiting these final cultures 2 result prior to recommending oral antibiotics. Patient will require a total of 2 weeks of antibiotics. Wound consult pending for outpatient management. Upon discharge patient should follow-up with me in the office in 1 week for wound check. New onset diabetes: Improved glucose control. Recommend outpatient follow-up for continual management. Morbid obesity: Patient should receive referred to a reed fixer for her morbid obesity as her groin abscess is secondary to her obesity.
[2017-10-20] MEDS: VANCOMYCIN INJ 2 GM in SODIUM CHLORIDE 0.9% 500 ML IV SCH ×3 (11:43→22:16)
[2017-10-20] MEDS: SODIUM CHLORIDE FLUSH 0.9% 10 ML SYRINGE IVP PRN (11:44)
--- NOTE | 2017-10-20 12:42 | PROVIDER PROGRESS NOTE ---
Subjective - Prog Note Date Prog Note Date: 10/20/17 Prog Note Time: 08:30 - Subjective Pt reports feeling: Improved Subjective: Patient resting in bed, she is feeling nauseated, she says this has happened a couple of mornings, resolves with antiemetic. She otherwise says she is feel "ok" she denies fever/chills or increasing leg/groin pain. She reports she has been mobile in room with walker. No orthostatic symptoms. Current Medications - Current Medications Current Medications: Active Medications Acetaminophen (Tylenol) 650 mg PO Q4HR PRN PRN Reason: Pain 1 to 4 Famotidine (Pepcid) 20 mg PO DAILY [facility] Last Admin: 10/20/17 09:01 Dose: 20 mg Hydromorphone HCl (Dilaudid Inj Syringe) 0.5 mg IVP Q2H PRN PRN Reason: Pain 8 to 10 Acetaminophen (Ofirmev) 100 mls @ 400 mls/hr IV Q6HR PRN PRN Reason: PAIN Last Infusion: 10/19/17 21:55 Dose: Infused Cefepime HCl 2 gm/ Sodium (Chloride) 100 mls @ 200 mls/hr IV BID [facility] Last Infusion: 10/20/17 09:32 Dose: Infused Vancomycin HCl 2 gm/ Sodium (Chloride) 500 mls @ 250 mls/hr IV Q12H [facility] Last Infusion: 10/20/17 11:46 Dose: 0 mls/hr Metronidazole (Flagyl 500 Mg/100 Ml) 500 mg in 100 mls @ 100 mls/hr IV Q6HR [facility] Last Infusion: 10/20/17 07:30 Dose: Infused Ibuprofen (Motrin) 600 mg PO Q6HR PRN PRN Reason: Pain or Fever > 38C (100.4F) Insulin Aspart (Novolog) 3 - 11 unit SUBQ 0800,1200,1700,2100 [facility] PRN Reason: Protocol Last Admin: 10/20/17 11:47 Dose: Not Given Insulin Aspart (Novolog) 7 unit SUBQ TIDWM FELISHA PRN Reason: Protocol Last Admin: 10/20/17 12:15 Dose: 7 unit Insulin Glargine (Lantus Solostar) 20 unit SUBQ 0600,1800 [facility] Last Admin: 10/20/17 06:28 Dose: 20 unit Ketorolac Tromethamine (Toradol Inj) 30 mg IVP Q6HR PRN PRN Reason: PAIN Stop: 10/22/17 04:17 Last Admin: 10/18/17 19:27 Dose: 30 mg Lisinopril (Zestril) 20 mg PO DAILY [facility] Last Admin: 10/20/17 09:01 Dose: 20 mg Polyethylene Glycol (Miralax) 17 gm PO DAILY [facility] Last Admin: 10/20/17 09:01 Dose: 17 gm Potassium Chloride (K-Dur) 20 meq PO ONCE ONE Stop: 10/20/17 12:38 Prochlorperazine Edisylate (Compazine Inj) 10 mg IVP Q6HR PRN PRN Reason: Nausea / Vomiting Last Admin: 10/20/17 06:27 Dose: 10 mg Sodium Chloride (Normal Saline Flush 0.9%) 10 ml IVP PRN PRN PRN Reason: NEEDED PER PROVIDER ORDERS Last Admin: 10/20/17 11:44 Dose: 10 ml Sodium Chloride (Normal Saline Flush 0.9%) 10 ml IVP Q8HR [facility] Last Admin: 10/20/17 05:42 Dose: Not Given Temazepam (Restoril) 15 mg PO QPM PRN PRN Reason: Insomnia Lisinopril 20 mg PO DAILY 10/16/17 Objective - Vital Signs/Intake & Output Vital Signs: Vital Signs x48h Temp Pulse Resp BP Pulse Ox 10/20/17 08:00 36.9 C 80 20 181/79 H 98 10/20/17 05:00 37.1 C 83 16 98 Intake & Output: Intake & Output 10/17/17 10/18/17 10/19/17 10/20/17 23:59 23:59 23:59 23:59 Intake Total 3702.000 4758 3181.333 1812.5 Output Total 218 181 8745 700 Balance 3327.000 4028 9697.337 2785.5 - Objective General Appearance: positive: No acute distress, Alert Eyes Bilateral: positive: Normal inspection ENT: positive: No signs of dehydration Neck: positive: No JVD Respiratory: positive: Chest non-tender, No respiratory distress, Breath sounds nml Cardiovascular: positive: Regular rate & rhythm, No murmur Peripheral Pulses: 1+ Dorsalis pedis (R), 1+ Dorsalis pedis (L), 1+ Posterior tibialis (R), 1+ Posterior tibialis (L), 2+ Radial (R), 2+ Radial (L) Abdomen: positive: Non-tender (Obese), Nml bowel sounds Skin: positive: Color nml, Warm, Dry, Other (R groin/upper leg dressing intact, no cellulitis on the exposed skin) Extremities: positive: Non-tender, Full ROM, Nml appearance (obese) Neurologic/Psychiatric: positive: Oriented x3, Motor nml, Sensation nml, Mood/ affect nml - Lab Results Fish Bones: 10/20/17 05:50 10/20/17 05:50 Other Labs: Lab Results x24hrs 10/20/17 10/20/17 10/20/17 Range/Units 06:05 05:50 05:50 WBC 9.9 (4.8-10.8) x10^3/uL RBC 3.39 L (4.20-5.40) 10^6/uL Hgb 9.3 L (12.0-16.0) g/dL Hct 28.9 L (37.0-47.0) % MCV 85.5 (81.0-99.0) fL MCH 27.6 (27.0-31.0) pg MCHC 32.3 (32.0-36.0) g/dL RDW 14.3 (12.0-15.0) % Plt Count 325 (130-450) 10^3/uL MPV 7.1 L (7.9-10.8) fL Neut # 7.3 H (1.5-6.6) 10^3/uL Lymph # 1.4 L (1.5-3.5) 10^3/uL [place] # 1.1 H (0.0-1.0) 10^3/uL Eos # 0.2 (0.0-0.7) 10^3/uL Baso # 0.0 (0.0-0.1) 10^3/uL Absolute Nucleated RBC 0.01 x10^3/uL Nucleated RBC % 0.1 /100WBC Sodium 137 (135-145) mmol/L Potassium 3.4 L (3.5-5.0) mmol/L Chloride 105 (101-111) mmol/L Carbon Dioxide 21 (21-32) mmol/L Anion Gap 11.0 (6-13) BUN 10 (6-20) mg/dL Creatinine 0.6 (0.4-1.0) mg/dL Estimated GFR (MDRD) 109 (>89) Glucose 133 H (70-100) mg/dL POC Whole Bld Glucose 130 H (70 - 100) mg/dL Calcium 7.5 L (8.5-10.3) mg/dL Total Bilirubin 0.5 (0.2-1.0) mg/dL AST 26 (10-42) IU/L ALT 22 (10-60) IU/L Alkaline Phosphatase 73 (42-121) IU/L Total Protein 6.2 L (6.7-8.2) g/dL Albumin 2.2 L (3.2-5.5) g/dL Globulin 4.0 (2.1-4.2) g/dL Albumin/Globulin Ratio 0.6 L (1.0-2.2) 10/20/17 10/19/17 10/19/17 Range/Units 00:08 20:52 16:31 WBC (4.8-10.8) x10^3/uL RBC (4.20-5.40) 10^6/uL Hgb (12.0-16.0) g/dL Hct (37.0-47.0) % MCV (81.0-99.0) fL MCH (27.0-31.0) pg MCHC (32.0-36.0) g/dL RDW (12.0-15.0) % Plt Count (130-450) 10^3/uL MPV (7.9-10.8) fL Neut # (1.5-6.6) 10^3/uL Lymph # (1.5-3.5) 10^3/uL [place] # (0.0-1.0) 10^3/uL Eos # (0.0-0.7) 10^3/uL Baso # (0.0-0.1) 10^3/uL Absolute Nucleated RBC x10^3/uL Nucleated RBC % /100WBC Sodium (135-145) mmol/L Potassium (3.5-5.0) mmol/L Chloride (101-111) mmol/L Carbon Dioxide (21-32) mmol/L Anion Gap (6-13) BUN (6-20) mg/dL Creatinine (0.4-1.0) mg/dL Estimated GFR (MDRD) (>89) Glucose (70-100) mg/dL POC Whole Bld Glucose 169 H 145 H 124 H (70 - 100) mg/dL Calcium (8.5-10.3) mg/dL Total Bilirubin (0.2-1.0) mg/dL AST (10-42) IU/L ALT (10-60) IU/L Alkaline Phosphatase (42-121) IU/L Total Protein (6.7-8.2) g/dL Albumin (3.2-5.5) g/dL Globulin (2.1-4.2) g/dL Albumin/Globulin Ratio (1.0-2.2) Assessment/Plan - Problem List (1) Cutaneous abscess of limb, unspecified Impression: Recurrent boils since teenager, most recent in right upper thigh/groin with associated fever. Had I&D in ER, cx with skin ozzy. Surgery consulted and pt underwent additional I&D on 10/17 and a washout on 10/19, cx pending. She has been on broad spectrum antibiotics since admission. -MRSA swab, if negative then DC Vanco -Antibx per surgery: vanco, cefepime and flagyl -Dr Pichardo has reffered patient to [facility] for wound care -F/U with Florence in 1 week Patient currently with guillen catheter I presume to keep wound CDI, this will need to be removed and plan to keep wound dry Qualifiers: Site of cutaneous abscess of extremity: lower extremity Laterality: right Qualified Code(s): L02.415 - Cutaneous abscess of right lower limb (2) Diabetes mellitus type 2 with complications Impression: New diagnosis this admit of DM, likely due to morbid obesity and diet, she also displays clinical signs of metabolic syndrome. Has responded well to initiation of insulin. 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 BP elevated on admission, remains elevated. -Increase lisinopril to 40mg a day -Will need BMP in a week to check renal function -PRN clonidine for SBP >180/90, if needed >2d then add 2nd agent (4) Morbid (severe) obesity due to excess calories Impression: BMI 52, longstanding obesity. -Medically supervised weight management recommended HOSPITAL ISSUES: DVT PROPHYLAXIS: start heparin bid CODE STATUS: full DC PLAN: await cx, switch to Po antibx, f/u [facility] for wound care, needs PCP follow -up, see Florence in a week.
[2017-10-20] MEDS ORDERED: cloNIDine 0.1 MG TABLET PO PRN (12:55)
[2017-10-20] MEDS ORDERED: POTASSIUM CHLORIDE 20 MEQ TABLET PO SCH (13:00)
[2017-10-20] MEDS: SACCHAROMYCES BOULARDII 250 MG CAPSULE PO SCH ×2 (14:49→18:13)
[2017-10-20] MEDS: HEPARIN 5,000 UNIT/ML VIAL SUBQ SCH (21:17)
[2017-10-21] MEDS: metroNIDAZOLE 500 MG/100 ML 500 MG/100 ML BAG IV SCH ×3 (00:20→05:57)
[2017-10-21 05:19] LABS: CHOL/HDL RATIO 3.5 (<4.4); CHOLESTEROL 78 mg/dL; HDL CHOLESTEROL 22 mg/dL; LDL CHOLESTEROL,CALCULATED 45 mg/dL; VLDL CHOLESTEROL 11 mg/dL
[2017-10-21] MEDS: SODIUM CHLORIDE FLUSH 0.9% 10 ML SYRINGE IVP SCH (05:40)
[2017-10-21] MEDS: INSULIN GLARGINE 300 UNIT/3 ML PEN SUBQ SCH (05:56)
[2017-10-21] MEDS: PROCHLORPERAZINE 10 MG/2 ML VIAL IVP PRN (08:11)
[2017-10-21] MEDS: INSULIN ASPART 300 UNIT/3 ML PEN SUBQ SCH ×2 (08:11→09:58)
[2017-10-21] MEDS ORDERED: LISINOPRIL 20 MG TABLET PO SCH (09:00)
[2017-10-21 09:43] VITALS: BP 154/70
[2017-10-21] MEDS: FAMOTIDINE 20 MG TABLET PO SCH (09:55)
[2017-10-21] MEDS: POLYETHYLENE GLYCOL 3350 17 GM PACKET PO SCH (09:55)
[2017-10-21] MEDS: HEPARIN 5,000 UNIT/ML VIAL SUBQ SCH (09:56)
[2017-10-21] MEDS: CEFEPIME 2 GM in SODIUM CHLORIDE 0.9% MINIBAG 100 ML IV SCH (09:56)
[2017-10-21] MEDS: SACCHAROMYCES BOULARDII 250 MG CAPSULE PO SCH (09:56)
[2017-10-21] MEDS: KETOROLAC 30 MG/ML VIAL IVP PRN (10:56)
--- NOTE | 2017-10-21 11:37 | Discharge Plan ---
Discharge Plan Disposition: Home, Self Care Condition: Good Prescriptions: Blood-Glucose Meter [Glucometer] 1 each ACHS #1 each Ciprofloxacin HCl [Cipro] 500 mg PO DAILY 11 Days #11 tablet Clindamycin HCl [Clindamycin 300MG CAP] 600 mg PO BID 11 Days #44 capsule Hydrocodone/Acetaminophen [Hydrocodon-Acetaminoph 2.5-325] 1 each PO Q4H PRN # 25 tablet PRN Reason: Pain Insulin Aspart [Novolog Flexpen] 5 unit SUBQ AC #3 each Insulin Glargine [Lantus Solostar] 18 unit SUBQ 0600,1800 #3 pen Lancets/Blood Glucose Strips [Fora [id number] Strp-Lnct] 1 each ACHS # 120 combo..pkg Pen Needle, Diabetic [Insulin Pen Needle] 1 each QID #3 dis.needle Saccharomyces Boulardii [Florastor] 250 mg PO BID 22 Days #44 capsule Diet: Diabetic Activity Restrictions: No Restrictions Shower Restrictions: No Driving Restrictions: No Weight Bearing: Full Weight Instruction Topics: Log Blood Sugar, Diabetes Heart Disease, Diabetes Fci Complications, Hyperglycemia, Hypoglycemia, Diabetes Resources, Diabetes Type 2 Coping, Insulin Injected, Diabetes Type 2 Oral Meds, Insulin Types, Diabetes Healthy Meals, Diabetes Carbs, Diabetes Eating Out, Blood Sugar Manage Exercise, Diabetes Keep Feet Healthy, Diabetes Inspect Feet Additional Instructions or Follow Up instructions: You were admitted for a sore on your inner right thigh and were taken to surgery 2 times. This is now a large wound that will need some wound management. A hemoglobin A1C was checked and was elevated at 12.5. A diagnosis of diabetes is when your A1C is greater than 6. It is essential that you manage this disease to help prevent complications with your skin. You were also found to have a bladder infection. Continue and complete all medications as directed. Please see your PCP within one week. Please continue with diabetes management. Please continue with wound care through our [facility]. Follow-Up Care: [facility] - Wound/Ostomy, [facility] [place] Clinic - Diabetes Ed No Smoking: If you smoke, Please STOP! Call for help.
--- NOTE | 2017-10-21 11:51 | DISCHARGE SUMMARY ---
Discharge Summary Admit Date: 10/16/17 Discharge Date: 10/21/17 Discharging Provider: WILMAN Stevens Code Status: Attempt Resuscitation Condition at Discharge: Good Discharge Disposition: 01 Home, Self Care - DIAGNOSES Admission Diagnoses: Cutaneous abscess of limb, unspecified (L02.419) Essential (primary) hypertension (I10) Morbid (severe) obesity due to excess calories (E66.01) Hyperglycemia, unspecified (R73.9) Type 2 diabetes mellitus with unspecified complications (E11.8) Discharge Diagnoses with Status of Each Condition: Abscess of leg (L02.419) ongoing, care to continue at home. Diabetes mellitus type 2 with complications (E11.8) new on this admission, PCP set up for continued care. HTN (hypertension) (I10) chronic, stable. Morbid obesity with BMI of 50.0-59.9, adult (E66.01) chronic, stable. - HPI History of Present Illness: Sydney Dye is a morbidly obese 42-year old with a past medical history of hypertension and prior lower extremity abscess or cysts that drain and resolve on their own according to the patient and her . The patient presented to the ED after a 4-day history of a new cyst that opened and started to drain purulent drainage in the right medial thigh, very close to her groin. The leg area involved then started to extend upward to involve a major portion of her proximal medial thigh with redness and pain. She also developed chills, nausea , vomiting and started to spike fevers. With these symptoms worsening today, she decided to come to the ED as she does not have a PCP. Patient was started on IV antibiotics, general surgery was called and is planning for an I & D in the AM. She will be admitted to the hospitalist service. - HOSPITAL COURSE Hospital Course: The following diagnoses were prevalent during this hospital stay: (1) Diabetes mellitus type 2 with complications- Patient had a HgA1C of 12.5 on admission, so this is a new diagnoses. Patient has an elevated BMI of 52.1, and is morbidly obese. Patient denies awareness of diabetes, although has had elaborate wounds in the past. Blood glucose has been elevated since surgery of >200. Patient was started and continued on high dose Lantus, which was titrated based on early AM sugars. (2) Cutaneous abscess of limb, unspecified- Patient notes that she has been getting boils since age 15 years and they are generally self limiting. She arrived in our ED with a right inner thigh boil that was extremely painful, had fevers, and appeared infected, so general surgery was consulted. Patient was taken to OR today for the second time for a wash-out, and is now post op. Patient will need to complete a total of 2 full weeks of antibiotics. Patient received continuous IV antibiotics. Wound care per nursing and surgery following. (3) Essential hypertension- Patient has a known history of this and was on lisinopril at home. Blood pressure was 154/70. No additional agents were added upon discharge. Patient was continued on her home dose of Lisinopril and vital signs were monitored. (4) Morbid (severe) obesity due to excess calories- Patient has a grossly elevated BMI of 52.1, and has had weight issues for "as long as she can remember ". Complications of this are likely hypertension and now diabetes mellitus type 2. 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 (5) Hyperglycemia- General surgery is aware and requests that blood glucose stay less than 200, so efforts have been taken to ensure this. Patient's last glucose is noted to be 108, within our goal of less than 200. Patient's blood sugars were frequently monitored to maintain a blood glucose less than 200 to lessen the likelihood of a post-op infection. (6) Abnormal urine sediment- Patient is noted to have urinary sediment and tea colored urine. She denies dysuria, incontinence, or other UTI symptoms. Suspect infection due to the grossly elevated HgA1C of 12.5. Patient's indwelling guillen was changed x1 to obtain a new urine sample. No cultures grew out. Disposition: Patient was discharged in stable condition with new prescriptions for insulin, antibiotics and strict PCP follow up. She was able to schedule an appointment with a new PCP while still in the hospital, in addition, wound care clinic appointments. - ALLERGIES Allergies/Adverse Reactions: Allergies Allergy/AdvReac Type Severity Reaction Status Date / Time aspirin Allergy Anaphylaxis Verified 10/16/17 22:00 Latex, Natural Rubber Allergy Rash Verified 10/16/17 22:02 shellfish derived Allergy Anaphylaxis Verified 10/16/17 22:02 - MEDICATIONS Home Medications: Ambulatory Orders Medication Instructions Recorded Confirmed Lisinopril 20 mg PO DAILY 10/16/17 10/16/17 Blood-Glucose Meter [Glucometer] 1 each ACHS #1 each 10/21/17 Ciprofloxacin HCl [Cipro] 500 mg PO DAILY 11 Days #11 tablet 10/21/17 Clindamycin HCl [Clindamycin 300MG 600 mg PO BID 11 Days #44 capsule 10/21/17 CAP] Hydrocodone/Acetaminophen 1 each PO Q4H PRN #25 tablet 10/21/17 [Hydrocodon-Acetaminoph 2.5-325] Insulin Aspart [Novolog Flexpen] 5 unit SUBQ AC #3 each 10/21/17 Insulin Glargine [Lantus Solostar] 18 unit SUBQ 0600,1800 #3 pen 10/21/17 Lancets/Blood Glucose Strips [Fora [address] [facility] #120 combo..pkg 10/21/17 [id number] Strp-Lnct] Pen Needle, Diabetic [Insulin Pen 1 each QID #3 dis.needle 10/21/17 Needle] Saccharomyces Boulardii [Florastor] 250 mg PO BID 22 Days #44 capsule 10/21/17 - PHYSICAL EXAM AT DISCHARGE General Appearance: positive: No acute distress, Alert, Mild distress Eyes Bilateral: positive: Normal inspection, PERRL ENT: positive: ENT inspection nml, Pharynx nml Neck: positive: Nml inspection, Thyroid nml, No JVD Respiratory: positive: Chest non-tender, No respiratory distress, Breath sounds nml Cardiovascular: positive: Regular rate & rhythm, No gallop, Decreased pulse(s) Peripheral Pulses: positive: 1+ Abdomen: positive: Non-tender, Nml bowel sounds Back: positive: Nml inspection Skin: positive: No rash, Warm, Dry, Other (surgical site right inner thigh- tunneling.) Extremities: positive: Non-tender, Full ROM, Nml appearance, Pedal edema ( chronic edema) Neurologic/Psychiatric: positive: Oriented x3, CN's nml (2-12), Motor nml, Sensation nml, Depressed mood/affect Reflexes: Bicep (R): 3+, Bicep (L): 3+ - LABS Result Diagrams: 10/20/17 05:50 10/20/17 05:50 - DIAGNOSTIC IMAGING Diagnostic Imaging Results: Prelim report reviewed, Final report reviewed - FOLLOW UP Follow Up: Disposition: 01 Home, Self Care Condition: Good Prescriptions: Blood-Glucose Meter [Glucometer] 1 each ACHS #1 each Ciprofloxacin HCl [Cipro] 500 mg PO DAILY 11 Days #11 tablet Clindamycin HCl [Clindamycin 300MG CAP] 600 mg PO BID 11 Days #44 capsule Hydrocodone/Acetaminophen [Hydrocodon-Acetaminoph 2.5-325] 1 each PO Q4H PRN # 25 tablet PRN Reason: Pain Insulin Aspart [Novolog Flexpen] 5 unit SUBQ AC #3 each Insulin Glargine [Lantus Solostar] 18 unit SUBQ 0600,1800 #3 pen Lancets/Blood Glucose Strips [Fora [id number] Strp-Lnct] 1 each ACHS # 120 combo..pkg Pen Needle, Diabetic [Insulin Pen Needle] 1 each QID #3 dis.needle Saccharomyces Boulardii [Florastor] 250 mg PO BID 22 Days #44 capsule Diet: Diabetic Activity Restrictions: No Restrictions Shower Restrictions: No Driving Restrictions: No Weight Bearing: Full Weight Instruction Topics: Log Blood Sugar, Diabetes Heart Disease, Diabetes Hadoop Architect Complications, Hyperglycemia, Hypoglycemia, Diabetes Resources, Diabetes Type 2 Coping, Insulin Injected, Diabetes Type 2 Oral Meds, Insulin Types, Diabetes Healthy Meals, Diabetes Carbs, Diabetes Eating Out, Blood Sugar Manage Exercise, Diabetes Keep Feet Healthy, Diabetes Inspect Feet Additional Instructions or Follow Up instructions: You were admitted for a sore on your inner right thigh and were taken to surgery 2 times. This is now a large wound that will need some wound management. A hemoglobin A1C was checked and was elevated at 12.5. A diagnosis of diabetes is when your A1C is greater than 6. It is essential that you manage this disease to help prevent complications with your skin. You were also found to have a bladder infection. Continue and complete all medications as directed. Please see your PCP within one week. Please continue with diabetes management. Please continue with wound care through [place] [facility]. - TIME SPENT Time Spent in Discharge (Minutes): 60
== END 2017-10-21 13:55 | disposition home or self-care (01) | DRG 571 ==
LOC: ED 21:52 → MS2 10-17 01:51
PROVIDERS: ADMIT Internal Medicine; ATTEND Nurse Practitioner
PROC: 0JBL0ZZ Excision of Right Upper Leg Subcutaneous Tissue and Fascia, Open Approach (ICD-10-PCS; principal; 2017-10-17 10:00)
PROC: 0JBL0ZZ Excision of Right Upper Leg Subcutaneous Tissue and Fascia, Open Approach (ICD-10-PCS; 2017-10-19)
DX: L02.415 Cutaneous abscess of right lower limb (principal); Z68.43 Body mass index [BMI] 50.0-59.9, adult; E11.65 Type 2 diabetes mellitus with hyperglycemia; E66.01 Morbid (severe) obesity due to excess calories; I10 Essential (primary) hypertension
CPT/HCPCS: 36415; 71045; 80048; 80053; 80061; 81001; 83036; 83605; 83721; 84703; 85025; 87040; 87070; 87081; 87086; 87205; 87640; 93005; 96365; 96366; 96367; 96375; 99283; 99284

== ENCOUNTER 2018-02-12 08:16 | Outpatient (CLI) | payer MEDICAID ==
[2018-02-12 12:50] LABS: BASOPHILS % (AUTO) 0.6 %; EOSINOPHILS # (AUTO) 0.1 10^3/uL (0.0-0.7); EOSINOPHILS % (AUTO) 2.6 %; HGB - HEMOGLOBIN 11.8 g/dL (12.0-16.0); LYMPHOCYTES # (AUTO) 1.5 10^3/uL (1.5-3.5); LYMPHOCYTES % (AUTO) 27.5 %; MEAN CORPUSCULAR HEMOGLOBIN 28.1 pg (27.0-31.0); MEAN CORPUSCULAR HGB CONC 32.9 g/dL (32.0-36.0); MEAN CORPUSCULAR VOLUME 85.2 fL (81.0-99.0); MEAN PLATELET VOLUME 8.2 fL (7.9-10.8); MONOCYTES # (AUTO) 0.3 10^3/uL (0.0-1.0); MONOCYTES % (AUTO) 5.2 %; NEUTROPHILS # (AUTO) 3.5 10^3/uL (1.5-6.6); NEUTROPHILS % (AUTO) 64.1 %; PLT - PLATELET COUNT 277 10^3/uL (130-450); RED BLOOD COUNT 4.19 10^6/uL (4.20-5.40); RED CELL DISTRIBUTION WIDTH 14.6 % (12.0-15.0); WHITE BLOOD COUNT 5.4 x10^3/uL (4.8-10.8)
[2018-02-12 13:36] LABS: HB2 TOTAL 12.9 g/dL; HEMOGLOBIN A1C 0.46 g/dL; HEMOGLOBIN A1C % 5.4 % (4.6-6.2)
[2018-02-12 13:42] LABS: BUN - BLOOD UREA NITROGEN 13 mg/dL (6-20); CALCIUM 8.5 mg/dL (8.5-10.3); CARBON DIOXIDE - CO2 23 mmol/L (21-32); CHLORIDE 105 mmol/L (101-111); CHOL/HDL RATIO 2.6 (<4.4); CHOLESTEROL 125 mg/dL; CREATININE 0.7 mg/dL (0.4-1.0); GFR - MDRD 91 (>89); GLUCOSE 80 mg/dL (70-100); HDL CHOLESTEROL 49 mg/dL; SODIUM 134 mmol/L (135-145)
[2018-02-12 14:20] LABS: LDL CHOLESTEROL,DIRECT 72 mg/dL; LDLD/HDL RATIO 1.5 (<4.4)
== END 2018-02-12 23:59 | disposition home or self-care (01) ==
LOC: LAB.N 08:16
PROVIDERS: ATTEND Physician Assistant Medical
DX: E11.9 Type 2 diabetes mellitus without complications (principal); Z79.4 Long term (current) use of insulin; Z68.43 Body mass index [BMI] 50.0-59.9, adult
CPT/HCPCS: 36415; 80048; 80061; 82043; 83036; 83721; 84443; 85025

== ENCOUNTER 2018-05-17 08:18 | Outpatient (CLI) | payer MEDICAID ==
[2018-05-17 13:47] LABS: HB2 TOTAL 12.9 g/dL; HEMOGLOBIN A1C 0.46 g/dL; HEMOGLOBIN A1C % 5.4 % (4.6-6.2)
== END 2018-05-17 08:19 | disposition home or self-care (01) ==
LOC: LAB.N 08:18
PROVIDERS: ATTEND Physician Assistant Medical
DX: E11.9 Type 2 diabetes mellitus without complications (principal)
CPT/HCPCS: 36415; 83036

== ENCOUNTER 2018-08-18 08:09 | Outpatient (CLI) | payer MEDICAID ==
[2018-08-18 12:57] LABS: CHOL/HDL RATIO 2.8 (<4.4); CHOLESTEROL 135 mg/dL; HDL CHOLESTEROL 49 mg/dL
[2018-08-18 13:16] LABS: LDL CHOLESTEROL,DIRECT 80 mg/dL; LDLD/HDL RATIO 1.6 (<4.4)
== END 2018-08-18 23:59 | disposition home or self-care (01) ==
LOC: LAB.N 08:09
PROVIDERS: ATTEND Physician Assistant Medical
DX: E11.9 Type 2 diabetes mellitus without complications (principal)
CPT/HCPCS: 36415; 80061; 82043; 83721